=== PATIENT | female | born 1975 | race Caucasian/White ===

== ENCOUNTER → 2016-11-08 | Outpatient (CLI) | payer OTHER ==
--- NOTE | 2016-11-08 15:05 | XR ---
EXAMINATION TYPE: XR knee complete LT, XR tibia fibula LT DATE OF EXAM: 11/08/2016 2:42 PM CLINICAL HISTORY: pain TECHNIQUE: Three views of the left knee are obtained. AP and lateral views of the left tibia and fib asim are also obtained. COMPARISON: None. FINDINGS: There is sclerosis noted involving the medial tibial plateau which could reflect growth rcok te residual although impacted fracture is difficult to exclude. Correlate clinically and if felt brad cated consider CT correlation. The remainder of the left tibia and fibula are grossly unremarkable. T he tri-compartment joint spaces appear mildly narrowed. The overlying soft tissue appears unremarkabl e. IMPRESSION: There is sclerosis noted involving the medial tibial plateau which could reflect growth plate residu al although impacted fracture is difficult to exclude. Correlate clinically and if felt indicated con senior support engineer CT correlation.
== END | disposition home or self-care (01) ==
LOC: RADXRMAIN 14:10
PROVIDERS: ATTEND Emergency Medicine
DX: S80.02XS Contusion of left knee, sequela (principal); S80.12XS Contusion of left lower leg, sequela

== ENCOUNTER → 2016-11-09 | Outpatient (CLI) | payer OTHER ==
--- NOTE | 2016-11-09 12:11 | CT ---
EXAMINATION TYPE: CT knee LT wo con DATE OF EXAM: 11/09/2016 12:03 PM COMPARISON: Radiographs 11/08/2016 HISTORY: 41-year-old female complains of continued left knee pain after trip and fall onto the left k nee. TECHNIQUE: Contiguous axial scanning of the left knee without IV contrast. Coronal and sagittal recon structions performed. CT DLP: 394.6 mGycm Automated exposure control for dose reduction was used. FINDINGS: There is tricompartmental degenerative change with marginal spurring. There is mild to moderate narro wing of medial compartment articular cartilage and joint space with some subchondral bony irregularit y and cystic change. A torn and extruded medial meniscus is difficult to exclude. There is mild to moderate knee joint effusion without Crawford's cyst. No acute fracture or dislocation seen. Extensor mechanism is intact. Mild anterior soft tissue swelling at the knee. IMPRESSION: 1. TRICOMPARTMENTAL OSTEOARTHROSIS, MODERATE WITHIN THE MEDIAL COMPARTMENT. 2. DIFFICULT TO EXCLUDE A TORN AND EXTRUDED MEDIAL MENISCUS. 3. MILD TO MODERATE KNEE JOINT EFFUSION. 4. NO ACUTE OSSEOUS ABNORMALITY SEEN.
== END | disposition home or self-care (01) ==
LOC: RADCTMAIN 11:33
PROVIDERS: ATTEND Emergency Medicine
DX: S80.02XD Contusion of left knee, subsequent encounter (principal); M17.12 Unilateral primary osteoarthritis, left knee; M25.462 Effusion, left knee

== ENCOUNTER 2017-11-06 16:38 | Emergency (ER) | payer BC, OTHER ==
[2017-11-06 17:07] VITALS: BP 116/62; PULSE 66; RESP 18; TEMP 98.4
--- NOTE | 2017-11-06 17:34 | ED ---
General Adult HPI - General Chief complaint: Needlestick/Exposure Stated complaint: [facility]-Needlestick Time Seen by Provider: 11/06/17 17:08 Source: patient, RN notes reviewed Mode of arrival: ambulatory Limitations: no limitations - History of Present Illness Initial comments: 42-year-old female presents to the emergency department with a chief complaint of right ring finger needlestick. Happened during a procedure today. She denies any pain. She's up-to-date immunizations. She is just here per protocol. No other complaints.Patient denies any recent fever, chills, shortness of breath, chest pain, back pain, abdominal pain, nausea vomiting, numbness or tingling, dysuria or hematuria, constipation or diarrhea, headaches or visual changes, or any other current symptoms. - Related Data Home Medications Medication Instructions Recorded Confirmed Meloxicam [Mobic] 15 mg PO DAILY 12/09/14 12/09/14 Ranitidine HCl [Zantac] 150 mg PO BID 12/09/14 12/09/14 Allergies Allergy/AdvReac Type Severity Reaction Status Date / Time Penicillins Allergy Rash/Hives Verified 11/06/17 17:07 Review of Systems ROS Statement: Those systems with pertinent positive or pertinent negative responses have been documented in the HPI. ROS Other: All systems not noted in ROS Statement are negative. Past Medical History Past Medical History: Asthma, Thyroid Disorder History of Any Multi-Drug Resistant Organisms: None Reported Past Surgical History: Section, Hysterectomy Past Psychological History: No Psychological Hx Reported Smoking Status: Never smoker Past Alcohol Use History: None Reported Past Drug Use History: None Reported General Exam - General Exam Comments Initial Comments: General: The patient is awake and alert, in no distress, and does not appear acutely ill. Cardiovascular: There is a regular rate and rhythm. No murmur, rub or gallop is appreciated. Respiratory: Lungs are clear to auscultation, respirations are non-labored, breath sounds are equal. No wheezes, stridor, rales, or rhonchi. Musculoskeletal: Sensation intact. 2+ pulses throughout right upper extremity. Fund motion of right hand. She has a small abrasion to the right proximal aspect of the middle finger. Neurological: CN II-XII intact, There are no obvious motor or sensory deficits. Coordination appears grossly intact. Speech is normal. Skin: Skin is warm and dry and no rashes or lesions are noted. Psychiatric: Normal mood and affect. Limitations: no limitations Course Vital Signs 11/06/17 17:03 Temperature 98.4 F Pulse Rate 66 Respiratory 18 Rate Blood Pressure 116/62 O2 Sat by Pulse 100 Oximetry Medical Decision Making - Medical Decision Making 42-year-old female presents emergency department with chief complaint of right hand needle stick injury. At this time we did do the appropriate laboratory. This time we did discuss follow-up return parameters questions. Patient stated that she understood and she is given plan. She will be discharged. Disposition Clinical Impression: Needle stick injury of finger of right hand Disposition: HOME SELF-CARE Condition: Stable Instructions: Needle Stick Injuries (ED) Additional Instructions: Please use medication as discussed. Please follow up with family doctor if symptoms have not improved over the next two days. Please return to the emergency room if your symptoms increase or worsen or for any other concerns. Referrals: Peyton Stearns MD [Primary Care Provider] - 1-2 days Time of Disposition: 17:34
== END 2017-11-06 17:43 | disposition home or self-care (01) ==
LOC: EC 16:38
DX: S60.412A Abrasion of right middle finger, initial encounter (principal); Z79.1 Long term (current) use of non-steroidal anti-inflammatories (NSAID); Z79.899 Other long term (current) drug therapy; Z88.0 Allergy status to penicillin; W46.0XXA Contact with hypodermic needle, initial encounter; Y92.69 Other specified industrial and construction area as the place of occurrence of the external cause; Y99.0 Civilian activity done for income or pay
CPT/HCPCS: 99282

== ENCOUNTER → 2018-03-14 | Outpatient (CLI) | payer BC ==
[2018-03-14 15:13] LABS: ALT 27 U/L (9-52); AST 19 U/L (14-36); Albumin 4.5 g/dL (3.5-5.0); Alkaline Phosphatase 99 U/L (38-126); Anion Gap 16 mmol/L; Blood Urea Nitrogen 33 mg/dL (7-17); Calcium 9.5 mg/dL (8.4-10.2); Carbon Dioxide 25 mmol/L (22-30); Chloride 104 mmol/L (98-107); Glucose 107 mg/dL (74-99); Potassium 3.7 mmol/L (3.5-5.1); Sodium 145 mmol/L (137-145); Total Bilirubin 0.2 mg/dL (0.2-1.3); Total Protein 7.5 g/dL (6.3-8.2)
--- NOTE | 2018-03-14 15:13 | XR ---
EXAMINATION TYPE: XR chest 2V DATE OF EXAM: 03/14/2018 COMPARISON: NONE HISTORY: Chest pain TECHNIQUE: Single frontal view of the chest is obtained. FINDINGS: There is no focal air space opacity, pleural effusion, or pneumothorax seen. The cardiac silhouette size is within normal limits. The osseous structures are intact. IMPRESSION: 1. No acute process.
[2018-03-14 15:14] LABS: Basophils # (A) 0.1 k/uL (0-0.2); Basophils % (A) 1 %; Eosinophils # (A) 0.2 k/uL (0-0.7); Eosinophils % (A) 2 %; HCT 42.6 % (34.0-46.0); HGB 14.1 gm/dL (11.4-16.0); Lymphocytes # (A) 2.8 k/uL (1.0-4.8); Lymphocytes % (A) 33 %; MCH 28.7 pg (25.0-35.0); MCHC 33.2 g/dL (31.0-37.0); MCV 86.5 fL (80.0-100.0); Mean Platelet Volume 6.6; Monocytes # (A) 0.4 k/uL (0-1.0); Monocytes % (A) 4 %; Neutrophils # (A) 5.1 k/uL (1.3-7.7); Neutrophils % (A) 59 %; Platelet Count 325 k/uL (150-450); RBC 4.93 m/uL (3.80-5.40); RDW 13.3 % (11.5-15.5); WBC 8.6 k/uL (3.8-10.6)
== END | disposition home or self-care (01) ==
LOC: LABWHC1 14:35
PROVIDERS: ATTEND Family Medicine
DX: R06.09 Other forms of dyspnea (principal)
CPT/HCPCS: 36415; 71046; 80053; 84443; 85025

== ENCOUNTER 2018-09-14 10:42 | Emergency (ER) | payer BC, OTHER ==
[2018-09-14 10:52] VITALS: BP 144/96; PULSE 77; RESP 18; TEMP 98.2
--- NOTE | 2018-09-14 11:09 | ED ---
Wound/Laceration HPI - General Chief Complaint: Wound/Laceration Stated Complaint: [facility] - rt thumb lac Time Seen by Provider: 09/14/18 10:54 Source: patient, RN notes reviewed Mode of arrival: ambulatory Limitations: no limitations - History of Present Illness Initial Comments: 43-year-old female presents emergency Department chief complaint of right thumb injury. 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 Patient states that it caused Laceration to the right thumb. She did wash out with Betadine and hydroperoxide. Patient's full range of motion of her right thumb she is right-hand dominant - Related Data Home Medications Medication Instructions Recorded Confirmed Ranitidine HCl [Zantac] 150 mg PO BID 12/09/14 12/09/14 Albuterol Inhaler [Ventolin Hfa 1 - 2 puff INHALATION RT-Q6H PRN 09/14/18 Inhaler] Bovine Thyroid Support 2 cap PO DAILY 09/14/18 09/14/18 Celecoxib [CeleBREX] 200 mg PO DAILY 09/14/18 09/14/18 Allergies Allergy/AdvReac Type Severity Reaction Status Date / Time Penicillins Allergy Rash/Hives Verified 09/14/18 11:11 Review of Systems ROS Statement: Those systems with pertinent positive or pertinent negative responses have been documented in the HPI. ROS Other: All systems not noted in ROS Statement are negative. Past Medical History Past Medical History: Asthma, Thyroid Disorder Additional Past Medical History / Comment(s): Arthitis History of Any Multi-Drug Resistant Organisms: None Reported Past Surgical History: Section, Hysterectomy Past Psychological History: No Psychological Hx Reported Smoking Status: Never smoker Past Alcohol Use History: None Reported Past Drug Use History: None Reported General Exam Limitations: no limitations General appearance: alert, in no apparent distress Head exam: Present: atraumatic, normocephalic, normal inspection Neck exam: Present: normal inspection. Absent: tenderness, meningismus, lymphadenopathy Respiratory exam: Present: normal lung sounds bilaterally. Absent: respiratory distress, wheezes, rales, rhonchi, stridor Cardiovascular Exam: Present: regular rate, normal rhythm, normal heart sounds. Absent: systolic murmur, diastolic murmur, rubs, gallop, clicks Extremities exam: Present: other (Right thumb full range of motion C shape laceration approximately 1 cm over the joint neurovascular intact) Course Vital Signs 09/14/18 10:49 Temperature 98.2 F Pulse Rate 77 Respiratory 18 Rate Blood Pressure 144/96 O2 Sat by Pulse 98 Oximetry Procedures - Laceration Laceration #1 Consent Obtained: verbal consent Indication: laceration Site: hand (Right hand first digit) Size (cm): 1 Description: flap, irregular Depth: simple, single layer Anesthetic Used: lidocaine 1%, without epi Anesthesia Technique: local infiltration Amount (mls): 2 Pre-repair: wound explored, irrigated extensively, deep structures intact Type of Sutures: nylon Size of Sutures: 4-0 Number of Sutures: 3 Technique: simple, interrupted Patient Tolerated Procedure: well, no complications Medical Decision Making - Medical Decision Making 43-year-old female presented for finger laceration. Patient laceration was closed using sutures patient tolerated well there is no tendon injury. Patient' s tetanus is up-to-date return parameters and and wound care were discussed Disposition Clinical Impression: Laceration of right thumb Disposition: HOME SELF-CARE Condition: Stable Instructions: Care For Your Stitches (ED), Finger Laceration (ED) Additional Instructions: Have sutures removed in 10 days. Please return to the Emergency Department if symptoms worsen or any other concerns. Is patient prescribed a controlled substance at d/c from ED?: No Referrals: Peyton Stearns MD [Primary Care Provider] - 1-2 days Time of Disposition: 11:09
== END 2018-09-14 11:53 | disposition home or self-care (01) ==
LOC: EC 10:42
DX: S61.011A Laceration without foreign body of right thumb without damage to nail, initial encounter (principal); J45.909 Unspecified asthma, uncomplicated; E07.9 Disorder of thyroid, unspecified; Z79.899 Other long term (current) drug therapy; Z88.0 Allergy status to penicillin; W26.8XXA Contact with other sharp object(s), not elsewhere classified, initial encounter; Y92.234 Operating room of hospital as the place of occurrence of the external cause; Y99.0 Civilian activity done for income or pay
CPT/HCPCS: 12001; 99282

== ENCOUNTER 2018-10-24 18:40 | Emergency (ER) | payer BC ==
[2018-10-24] MEDS ORDERED: methylPREDNISolone SOD SUCCI 125 MG/2 ML VIAL IV STA (18:55)
[2018-10-24] MEDS ORDERED: IPRATROPIUM-ALBUTEROL 3 ML NEB INHALATION STA (18:55)
--- NOTE | 2018-10-24 19:02 | ED ---
SOB HPI - General Chief Complaint: Shortness of Breath Stated Complaint: ASTHMA ATTACK Time Seen by Provider: 10/24/18 18:48 Source: patient, RN notes reviewed Mode of arrival: ambulatory Limitations: no limitations - History of Present Illness Initial Comments: This is a 43-year-old female with a history of asthma states she had the onset 4 days ago of cold symptoms which included a cough some wheezing and rhinorrhea she also states she had a fever for 2 days prior to this morning. The cough is minimally productive rhinorrhea is clear. She has some body aches earlier in the current process. Today she states she was at work and she had very dyspneic and it did not resolve with her inhaler. She denies any overt chest pain dizziness blurry vision she states her heart rate is rapid she believes is secondary to her inhaler. MD Complaint: shortness of breath - Related Data Home Medications Medication Instructions Recorded Confirmed Ranitidine HCl [Zantac] 150 mg PO BID 12/09/14 10/24/18 Albuterol Inhaler [Ventolin Hfa 1 - 2 puff INHALATION RT-Q6H PRN 09/14/18 Inhaler] Bovine Thyroid Support 2 cap PO DAILY 09/14/18 10/24/18 Celecoxib [CeleBREX] 200 mg PO DAILY 09/14/18 10/24/18 Albuterol Nebulized [Ventolin 2.5 mg INHALATION RT-QID PRN 10/24/18 10/24/18 Nebulized] Previous Rx's Medication Instructions Recorded Albuterol Inhaler [Ventolin Hfa 2 puff INHALATION Q6HR PRN #1 10/24/18 Inhaler] inhaler Azithromycin [Zithromax Tri-Tanner] 500 mg PO DAILY 3 Days #3 tab 10/24/18 predniSONE 20 mg PO BID #10 tab 10/24/18 Allergies Allergy/AdvReac Type Severity Reaction Status Date / Time Penicillins Allergy Rash/Hives Verified 10/24/18 19:58 Review of Systems ROS Statement: Those systems with pertinent positive or pertinent negative responses have been documented in the HPI. ROS Other: All systems not noted in ROS Statement are negative. Past Medical History Past Medical History: Asthma, Thyroid Disorder Additional Past Medical History / Comment(s): Arthitis History of Any Multi-Drug Resistant Organisms: None Reported Past Surgical History: Section, Hysterectomy Past Psychological History: No Psychological Hx Reported Smoking Status: Never smoker Past Alcohol Use History: None Reported Past Drug Use History: None Reported General Exam - General Exam Comments Initial Comments: Is a well-developed well-nourished awake alert oriented 3 female Limitations: no limitations General appearance: alert, anxious, in distress Head exam: Present: atraumatic, normocephalic, normal inspection Eye exam: Present: normal appearance, PERRL, EOMI. Absent: scleral icterus, conjunctival injection, periorbital swelling ENT exam: Present: mucous membranes moist, other (Boggy nasal mucosa) Neck exam: Present: normal inspection. Absent: tenderness, meningismus, lymphadenopathy Respiratory exam: Present: wheezes, decreased breath sounds. Absent: respiratory distress, rales, rhonchi, stridor Cardiovascular Exam: Present: normal rhythm, tachycardia, normal heart sounds. Absent: systolic murmur, diastolic murmur, rubs, gallop, clicks GI/Abdominal exam: Present: soft, normal bowel sounds. Absent: distended, tenderness, guarding, rebound, rigid Extremities exam: Present: normal inspection, full ROM, normal capillary refill. Absent: tenderness, pedal edema, joint swelling, calf tenderness Back exam: Present: normal inspection Neurological exam: Present: alert, oriented X3, CN II-XII intact Psychiatric exam: Present: normal affect, normal mood Skin exam: Present: warm, dry, intact, normal color. Absent: rash Course Vital Signs 10/24/18 10/24/18 10/24/18 18:42 19:15 19:24 Temperature 98.2 F Pulse Rate 152 H 117 H 122 H Respiratory 18 Rate Blood Pressure 166/137 O2 Sat by Pulse 94 L Oximetry - Reevaluation(s) Reevaluation #1: 10/24/18 19:46 Reevaluation patient finds that she is feeling much improved at the initial treatment that was rendered. X-rays pending at this time. Medical Decision Making - Medical Decision Making I did reevaluate patient on 2 occasions she is feeling much improved after discussion she'll be discharged on appropriate medication which includes antibiotic oral steroids and a new inhaler she does have a nebulizer machine at home. - Lab Data Result diagrams: 10/24/18 18:59 10/24/18 18:59 Lab Results 10/24/18 10/24/18 10/24/18 Range/Units 18:59 18:59 18:59 WBC 10.1 (3.8-10.6) k/uL RBC 5.36 (3.80-5.40) m/uL Hgb 15.0 (11.4-16.0) gm/dL Hct 45.0 (34.0-46.0) % MCV 83.9 (80.0-100.0) fL MCH 28.0 (25.0-35.0) pg MCHC 33.4 (31.0-37.0) g/dL RDW 13.0 (11.5-15.5) % Plt Count 308 (150-450) k/uL Neutrophils % 73 % Lymphocytes % 19 % Monocytes % 5 % Eosinophils % 2 % Basophils % 0 % Neutrophils # 7.3 (1.3-7.7) k/uL Lymphocytes # 1.9 (1.0-4.8) k/uL Monocytes # 0.5 (0-1.0) k/uL Eosinophils # 0.2 (0-0.7) k/uL Basophils # 0.0 (0-0.2) k/uL PT (9.0-12.0) sec INR (<1.2) APTT (22.0-30.0) sec Sodium 138 (137-145) mmol/L Potassium 4.1 (3.5-5.1) mmol/L Chloride 103 (98-107) mmol/L Carbon Dioxide 20 L (22-30) mmol/L Anion Gap 15 mmol/L BUN 19 H (7-17) mg/dL Creatinine 0.80 (0.52-1.04) mg/dL Est GFR (CKD-EPI)AfAm >90 (>60 ml/min/1.73 sqM) Est GFR (CKD-EPI)NonAf >90 (>60 ml/min/1.73 sqM) Glucose 128 H (74-99) mg/dL Calcium 10.1 (8.4-10.2) mg/dL Magnesium 1.8 (1.6-2.3) mg/dL Total Bilirubin 0.5 (0.2-1.3) mg/dL AST 23 (14-36) U/L ALT 29 (9-52) U/L Alkaline Phosphatase 129 H (38-126) U/L Total Creatine Kinase 40 (30-135) U/L CK-MB (CK-2) 0.3 (0.0-2.4) ng/mL CK-MB (CK-2) Rel Index 0.8 Troponin I <0.012 (0.000-0.034) ng/mL NT-Pro-B Natriuret Pep pg/mL Total Protein 8.1 (6.3-8.2) g/dL Albumin 4.6 (3.5-5.0) g/dL Influenza Type A RNA (Not Detectd) Influenza Type B (PCR) (Not Detectd) 10/24/18 10/24/18 10/24/18 Range/Units 18:59 18:59 18:59 WBC (3.8-10.6) k/uL RBC (3.80-5.40) m/uL Hgb (11.4-16.0) gm/dL Hct (34.0-46.0) % MCV (80.0-100.0) fL MCH (25.0-35.0) pg MCHC (31.0-37.0) g/dL RDW (11.5-15.5) % Plt Count (150-450) k/uL Neutrophils % % Lymphocytes % % Monocytes % % Eosinophils % % Basophils % % Neutrophils # (1.3-7.7) k/uL Lymphocytes # (1.0-4.8) k/uL Monocytes # (0-1.0) k/uL Eosinophils # (0-0.7) k/uL Basophils # (0-0.2) k/uL PT 10.1 (9.0-12.0) sec INR 0.9 (<1.2) APTT 26.3 (22.0-30.0) sec Sodium (137-145) mmol/L Potassium (3.5-5.1) mmol/L Chloride (98-107) mmol/L Carbon Dioxide (22-30) mmol/L Anion Gap mmol/L BUN (7-17) mg/dL Creatinine (0.52-1.04) mg/dL Est GFR (CKD-EPI)AfAm (>60 ml/min/1.73 sqM) Est GFR (CKD-EPI)NonAf (>60 ml/min/1.73 sqM) Glucose (74-99) mg/dL Calcium (8.4-10.2) mg/dL Magnesium (1.6-2.3) mg/dL Total Bilirubin (0.2-1.3) mg/dL AST (14-36) U/L ALT (9-52) U/L Alkaline Phosphatase (38-126) U/L Total Creatine Kinase (30-135) U/L CK-MB (CK-2) (0.0-2.4) ng/mL CK-MB (CK-2) Rel Index Troponin I (0.000-0.034) ng/mL NT-Pro-B Natriuret Pep 49 pg/mL Total Protein (6.3-8.2) g/dL Albumin (3.5-5.0) g/dL Influenza Type A RNA Not Detected (Not Detectd) Influenza Type B (PCR) Not Detected (Not Detectd) - EKG Data -: EKG Interpreted by Me EKG shows normal: sinus rhythm, axis, intervals, QRS complexes, ST-T waves ( Sinus tachycardia 121 AZ interval 132 QRS duration 82 QT since QTC 32/[address]-T wave changes) Rate: tachycardia - Radiology Data Radiology results: report reviewed (I did review the imaging and report is evidence of minimal linear infiltrate or atelectasis a right middle lobe.), image reviewed Disposition Clinical Impression: Acute asthma exacerbation, Pneumonitis, Bronchospasm Disposition: HOME SELF-CARE Condition: Good Instructions: Bronchospasm (ED), Asthma (ED), Pneumonitis (ED) Prescriptions: Albuterol Inhaler [Ventolin Hfa Inhaler] 2 puff INHALATION Q6HR PRN #1 inhaler PRN Reason: Dyspnea Azithromycin [Zithromax Tri-Tanner] 500 mg PO DAILY 3 Days #3 tab predniSONE 20 mg PO BID #10 tab Is patient prescribed a controlled substance at d/c from ED?: No Referrals: Peyton Stearns MD [Primary Care Provider] - 1-2 days
[2018-10-24 19:18] LABS: Basophils % (A) 0 %; Eosinophils # (A) 0.2 k/uL (0-0.7); Eosinophils % (A) 2 %; Lymphocytes # (A) 1.9 k/uL (1.0-4.8); Lymphocytes % (A) 19 %; MCHC 33.4 g/dL (31.0-37.0); MCV 83.9 fL (80.0-100.0); Mean Platelet Volume 6.7; Monocytes # (A) 0.5 k/uL (0-1.0); Monocytes % (A) 5 %; Neutrophils # (A) 7.3 k/uL (1.3-7.7); Neutrophils % (A) 73 %; Platelet Count 308 k/uL (150-450); RBC 5.36 m/uL (3.80-5.40); WBC 10.1 k/uL (3.8-10.6)
[2018-10-24 19:28] LABS: ALT 29 U/L (9-52); AST 23 U/L (14-36); Albumin 4.6 g/dL (3.5-5.0); Alkaline Phosphatase 129 U/L (38-126); Anion Gap 15 mmol/L; Blood Urea Nitrogen 19 mg/dL (7-17); Calcium 10.1 mg/dL (8.4-10.2); Carbon Dioxide 20 mmol/L (22-30); Chloride 103 mmol/L (98-107); Glucose 128 mg/dL (74-99); Magnesium 1.8 mg/dL (1.6-2.3); Potassium 4.1 mmol/L (3.5-5.1); Sodium 138 mmol/L (137-145); Total Bilirubin 0.5 mg/dL (0.2-1.3); Total Protein 8.1 g/dL (6.3-8.2)
[2018-10-24 19:32] LABS: Creatine Kinase 40 U/L (30-135); INR 0.9 (<1.2); Partial Thromboplastin Time 26.3 sec (22.0-30.0); Prothrombin Time 10.1 sec (9.0-12.0)
[2018-10-24 19:45] LABS: Creatine Kinase MB 0.3 ng/mL (0.0-2.4); Troponin I <0.012 ng/mL (0.000-0.034)
--- NOTE | 2018-10-24 20:20 | XR ---
EXAMINATION TYPE: XR chest 2V DATE OF EXAM: 10/24/2018 COMPARISON: NONE HISTORY: Short of breath TECHNIQUE: Frontal and lateral views of the chest are obtained. FINDINGS: Heart and mediastinum are normal. There is some linear density in the right middle lobe ad jacent to the major fissure. The other lung maxwell are clear. There is no pleural effusion. Bony thor ax is intact. IMPRESSION: Minimal linear infiltrate or atelectasis in the right middle lobe.
[2018-10-24 20:45] VITALS: BP 116/87; PULSE 107; RESP 16; TEMP 98.6
== END 2018-10-24 20:42 | disposition home or self-care (01) ==
LOC: EC 18:40
DX: J45.901 Unspecified asthma with (acute) exacerbation (principal); J18.9 Pneumonia, unspecified organism; M19.90 Unspecified osteoarthritis, unspecified site; E07.9 Disorder of thyroid, unspecified; Z79.1 Long term (current) use of non-steroidal anti-inflammatories (NSAID); Z79.899 Other long term (current) drug therapy; Z88.0 Allergy status to penicillin
CPT/HCPCS: 36415; 94640; 93005; 83880; 80053; 82550; 82553; 83735; 84484; 85025; 85610; 85730; 87040; 87502; 71046; 99285; 96374; J2930

== ENCOUNTER 2019-05-10 22:10 | Inpatient (IN) | payer BC ==
[2019-05-10] MEDS ORDERED: methylPREDNISolone SOD SUCCI 125 MG/2 ML VIAL IV STA (22:34)
[2019-05-10] MEDS ORDERED: MAGNESIUM SULFATE-D5W PMX 1 GM in DEXTROSE/WATER 1 100ML.BAG IVPB STA (22:34)
[2019-05-10] MEDS ORDERED: IPRATROPIUM-ALBUTEROL 3 ML NEB INHALATION STA (22:34)
[2019-05-10 22:56] LABS: Basophils # (A) 0.1 k/uL (0-0.2); Basophils % (A) 1 %; Eosinophils # (A) 0.2 k/uL (0-0.7); Eosinophils % (A) 1 %; HCT 38.5 % (34.0-46.0); HGB 12.8 gm/dL (11.4-16.0); Lymphocytes # (A) 2.6 k/uL (1.0-4.8); Lymphocytes % (A) 18 %; MCH 26.4 pg (25.0-35.0); MCHC 33.4 g/dL (31.0-37.0); MCV 79.2 fL (80.0-100.0); Mean Platelet Volume 7.2; Monocytes # (A) 0.8 k/uL (0-1.0); Monocytes % (A) 5 %; Neutrophils # (A) 10.7 k/uL (1.3-7.7); Neutrophils % (A) 74 %; Platelet Count 442 k/uL (150-450); RBC 4.86 m/uL (3.80-5.40); RDW 12.9 % (11.5-15.5); WBC 14.6 k/uL (3.8-10.6)
[2019-05-10 23:10] LABS: African American GFR (CKD) >90 (>60 ml/min/1.73 sqM); Anion Gap 13 mmol/L; Blood Urea Nitrogen 19 mg/dL (7-17); Calcium 9.2 mg/dL (8.4-10.2); Carbon Dioxide 24 mmol/L (22-30); Chloride 101 mmol/L (98-107); Glucose 126 mg/dL (74-99); Potassium 3.1 mmol/L (3.5-5.1); Sodium 138 mmol/L (137-145)
--- NOTE | 2019-05-10 23:14 | XR ---
EXAM: XR Chest, 2 Views CLINICAL HISTORY: ITS.REASON XR Reason: difficulty breathing TECHNIQUE: Frontal and lateral views of the chest. COMPARISON: 10/24/18. FINDINGS: Lungs: Mild lower lung opacities, possible atelectasis or developing infiltrate. Mild peribronchial thickening. Pleural space: No significant pleural effusion or pneumothorax. Heart: Stable cardiomediastinal silhouette. Mediastinum: See above. Bones/joints: Stable sclerotic focus in the proximal left humerus. IMPRESSION: Mild peribronchial thickening and lower lung opacities, possible atelectasis or developing infiltrate.
[2019-05-11] MEDS ORDERED: AZITHROMYCIN 500 MG in SODIUM CHLORIDE 0.9% 250 ML IVPB STA (00:31)
[2019-05-11] MEDS ORDERED: NALOXONE 0.4 MG/ML 1 ML VIAL IV PRN (00:45)
[2019-05-11] MEDS ORDERED: IPRATROPIUM-ALBUTEROL 3 ML NEB INHALATION SCH (00:45)
--- NOTE | 2019-05-11 00:45 | ED ---
SOB HPI - General Chief Complaint: Shortness of Breath Stated Complaint: Asthma Time Seen by Provider: 05/10/19 22:22 Source: patient Mode of arrival: ambulatory Limitations: no limitations - History of Present Illness Initial Comments: She is a 44-year-old female with past history of asthma who presents to the emergency room with worsening shortness of breath and she states that over the past week she's had progressive shortness of breath and wheezing. She did call her primary care physician who called her and a Medrol Dosepak. She has been using her rescue inhaler at home without improvement in her symptoms. She has also been using her mother's DuoNeb breathing treatment and states that these have not been helping. She reports palpitations. She is also had a dry cough. No reported fevers or chills. She reports that she will frequent hospital 1-2 times per year for worsening shortness of breath. She denies ever being on the ventilator due to her asthma. She denies any nausea, vomiting or diaphoresis. No chest pain. Denies any abdominal pain. History of DVTs or PEs. No family history of blood clotting disorders. No recent surgeries or travel. Denies exogenous hormone use. Her no other alleviating, precipitating or modifying factors - Related Data Home Medications Medication Instructions Recorded Confirmed Ranitidine HCl [Zantac] 150 mg PO BID 12/09/14 05/10/19 Bovine Thyroid Support 2 cap PO DAILY 09/14/18 05/10/19 Celecoxib [CeleBREX] 200 mg PO DAILY 09/14/18 05/10/19 Albuterol Nebulized [Ventolin 2.5 mg INHALATION RT-QID PRN 10/24/18 05/10/19 Nebulized] methylPREDNISolone Dose Pack See Taper PO DAILY 05/10/19 05/10/19 [Medrol Dose Pack] Previous Rx's Medication Instructions Recorded Albuterol Inhaler [Ventolin Hfa 2 puff INHALATION Q6HR PRN #1 10/24/18 Inhaler] inhaler Allergies Allergy/AdvReac Type Severity Reaction Status Date / Time Penicillins Allergy Rash/Hives Verified 10/24/18 19:58 Review of Systems ROS Statement: Those systems with pertinent positive or pertinent negative responses have been documented in the HPI. ROS Other: All systems not noted in ROS Statement are negative. Past Medical History Past Medical History: Asthma, GERD/Reflux, Thyroid Disorder Additional Past Medical History / Comment(s): Arthitis History of Any Multi-Drug Resistant Organisms: None Reported Past Surgical History: Section, Hysterectomy Past Psychological History: No Psychological Hx Reported Smoking Status: Never smoker Past Alcohol Use History: None Reported Past Drug Use History: None Reported General Exam Limitations: no limitations Course Vital Signs 05/10/19 05/10/19 05/10/19 22:12 23:03 23:10 Temperature 98.3 F Pulse Rate 114 H 112 H 98 Respiratory 23 18 Rate Blood Pressure 140/79 133/83 O2 Sat by Pulse 97 95 Oximetry 05/10/19 05/11/19 05/11/19 23:11 00:20 01:00 Temperature Pulse Rate 109 H 105 H 93 Respiratory 26 H 20 Rate Blood Pressure 133/83 116/70 O2 Sat by Pulse 90 L 93 L Oximetry 05/11/19 02:32 Temperature Pulse Rate Respiratory 18 Rate Blood Pressure O2 Sat by Pulse Oximetry Medical Decision Making - Medical Decision Making Vital the patient is placed into room 6. She is hooked up to continuous pulse ox and cardiac monitoring. A 12-lead EKG is performed which demonstrates sinus tachycardia. We did obtain IV access. The patient was given 125 mg of Solu- Medrol, 1 g of magnesium and a DuoNeb breathing treatment. Also provided the patient with Tessalon Perles and codeine cough syrup. I conducted laboratory studies and a chest x-ray was performed. Upon return results I did discuss with the patient. They are reading possible atelectasis versus infiltrate on the patient's chest x-ray. Because of her elevated white count of 14.6 I did recommend coverage with antibiotics. The white count may be attributed to patient's recent steroid use however we'll continue to place the patient on azithromycin. The patient was reevaluated and continues to remain tachycardic at 110 resting comfortably in bed. This patient is failing outpatient treatment I did recommend admission to hospital for which the patient did agree. She was admitted to Dr. Carrasco. I will provide the patient with steroids every 8 hours. She also received DuoNeb breathing treatments. I did replace the patient's potassium. She was given a 500 mL fluid bolus as well as 100 mL per hour for her lactic acidosis. The patient was reevaluated and showed no signs of respiratory distress. She is in transported to the floor in stable condition - Lab Data Result diagrams: 05/10/19 22:49 05/10/19 22:49 Lab Results 05/10/19 05/10/19 05/10/19 Range/Units 22:49 22:49 22:49 WBC 14.6 H (3.8-10.6) k/uL RBC 4.86 (3.80-5.40) m/uL Hgb 12.8 (11.4-16.0) gm/dL Hct 38.5 (34.0-46.0) % MCV 79.2 L (80.0-100.0) fL MCH 26.4 (25.0-35.0) pg MCHC 33.4 (31.0-37.0) g/dL RDW 12.9 (11.5-15.5) % Plt Count 442 (150-450) k/uL Neutrophils % 74 % Lymphocytes % 18 % Monocytes % 5 % Eosinophils % 1 % Basophils % 1 % Neutrophils # 10.7 H (1.3-7.7) k/uL Lymphocytes # 2.6 (1.0-4.8) k/uL Monocytes # 0.8 (0-1.0) k/uL Eosinophils # 0.2 (0-0.7) k/uL Basophils # 0.1 (0-0.2) k/uL D-Dimer 0.48 (<0.60) mg/L FEU Sodium 138 (137-145) mmol/L Potassium 3.1 L (3.5-5.1) mmol/L Chloride 101 (98-107) mmol/L Carbon Dioxide 24 (22-30) mmol/L Anion Gap 13 mmol/L BUN 19 H (7-17) mg/dL Creatinine 0.57 (0.52-1.04) mg/dL Est GFR (CKD-EPI)AfAm >90 (>60 ml/min/1.73 sqM) Est GFR (CKD-EPI)NonAf >90 (>60 ml/min/1.73 sqM) Glucose 126 H (74-99) mg/dL Plasma Lactic Acid Luke (0.7-2.0) mmol/L Calcium 9.2 (8.4-10.2) mg/dL 05/10/19 Range/Units 22:49 WBC (3.8-10.6) k/uL RBC (3.80-5.40) m/uL Hgb (11.4-16.0) gm/dL Hct (34.0-46.0) % MCV (80.0-100.0) fL MCH (25.0-35.0) pg MCHC (31.0-37.0) g/dL RDW (11.5-15.5) % Plt Count (150-450) k/uL Neutrophils % % Lymphocytes % % Monocytes % % Eosinophils % % Basophils % % Neutrophils # (1.3-7.7) k/uL Lymphocytes # (1.0-4.8) k/uL Monocytes # (0-1.0) k/uL Eosinophils # (0-0.7) k/uL Basophils # (0-0.2) k/uL D-Dimer (<0.60) mg/L FEU Sodium (137-145) mmol/L Potassium (3.5-5.1) mmol/L Chloride (98-107) mmol/L Carbon Dioxide (22-30) mmol/L Anion Gap mmol/L BUN (7-17) mg/dL Creatinine (0.52-1.04) mg/dL Est GFR (CKD-EPI)AfAm (>60 ml/min/1.73 sqM) Est GFR (CKD-EPI)NonAf (>60 ml/min/1.73 sqM) Glucose (74-99) mg/dL Plasma Lactic Acid Luke 2.2 H* (0.7-2.0) mmol/L Calcium (8.4-10.2) mg/dL - EKG Data EKG Comments: EKG demonstrates a sinus tachycardia with a ventricular rate of 103. FL interval 134. QRS 84. QTC 448. There are no acute ST segment elevations or depressions concerning for ischemic changes. Disposition Clinical Impression: Asthma exacerbation, Bronchospasm, Leukocytosis, Failure of outpatient tr eatment, Tachycardia Disposition: ADMITTED IP TO THIS HOSP Condition: Stable Is patient prescribed a controlled substance at d/c from ED?: No Decision to Admit Reason: Admit from EC Decision Date: 05/11/19 Decision Time: 00:44
[2019-05-11] MEDS ORDERED: ALBUTEROL NEBULIZED 2.5 MG/3 ML INHALATION PRN (00:47)
[2019-05-11] MEDS ORDERED: POTASSIUM CHLORIDE ER 20 MEQ TAB.ER PO STA (00:48)
[2019-05-11] MEDS: BENZONATATE 100 MG CAP PO SCH ×4 (00:49→22:12)
[2019-05-11] MEDS ORDERED: SODIUM CHLORIDE 0.9% 1,000 ML IV ONE (01:05)
[2019-05-11] MEDS: SODIUM CHLORIDE 0.9% 1,000 ML IV SCH ×3 (02:35→20:02)
[2019-05-11 06:03] VITALS: BMI 42.0
[2019-05-11 07:13] LABS: Glucose,Whole Blood 185 mg/dL (75-99)
[2019-05-11] MEDS: IPRATROPIUM-ALBUTEROL 3 ML NEB INHALATION PRN ×4 (08:16→20:07)
[2019-05-11] MEDS ORDERED: [UNRECOGNIZED DRUG - OTHER] PO SCH (09:00)
[2019-05-11] MEDS: methylPREDNISolone SOD SUCCI 40 MG/ML 1 ML VIAL IV SCH ×3 (10:28→23:39)
[2019-05-11] MEDS: MELOXICAM 7.5 MG TAB PO SCH (10:28)
[2019-05-11] MEDS: FAMOTIDINE 20 MG TAB PO SCH ×2 (10:28→20:03)
[2019-05-11 11:01] LABS: Glucose,Whole Blood 162 mg/dL (75-99)
--- NOTE | 2019-05-11 16:04 | P.HPIM ---
History of Present Illness H&P Date: 05/11/19 Chief Complaint: Shortness of breath Ms. Perez is a 44-year-old female with a past medical history of asthma, GERD, thyroid disorder coming into the hospital with a chief complaint of cough along with mild difficulty in breathing. Patient states that she has history of ast hma and is only taking rescue inhaler at home. For the past 1 week she has increased wheezing and difficulty in breathing so she called her primary care physician who put her on Medrol Dosepak. In spite of being on it patient continued to have cough and difficulty in breathing. The cough is mostly dry in nature nonproductive. She denies having any fevers chills or rigors. Patient denies having any chest pain, palpitations, orthopnea or PND. No sick contacts. No abdominal pain nausea vomiting or diarrhea. No history of recent travel. No history of blood clots in the family, no history of DVT and PE. In the emergency department patient received breathing treatments, started on Solu-Medrol and azithromycin. She had chest x-ray done that was negative for any acute cardiopulmonary process. Review of Systems REVIEW OF SYSTEMS: PSYCH: no Anxiety or depression NEURO:No c/o weakness of the extremties, No facial droop, No speech abnormalities. VASCULAR: Peripheral nervous system within the normal limits no edema HEMATOLOGIC: No history of easy bleeding and bruising . No recent infections . RESPIRATORY: As per HPI IMMUNE: No infections INTEGUMENT: no rashes OPHTHALMOLOGIC: No blurry vision and no eye discharge : No dysuria or hematuria AUTOCAD: No bleeding PV CARDIAC: No chest pain , shortness of breath , paroxysmal nocturnal dyspnea MUSCULOSKELETAL : No Aches or pains in the joints or muscles. GI: No abdominal pain, Nausea or vomiting. No constipation or diarrhea. Past Medical History Past Medical History: Asthma, GERD/Reflux, Thyroid Disorder Additional Past Medical History / Comment(s): Arthitis History of Any Multi-Drug Resistant Organisms: None Reported Past Surgical History: Section, Hysterectomy Past Psychological History: No Psychological Hx Reported Smoking Status: Never smoker Past Alcohol Use History: None Reported Past Drug Use History: None Reported - Past Family History Son(s) Family Medical History: No Reported History Medications and Allergies Home Medications Medication Instructions Recorded Confirmed Type Ranitidine HCl [Zantac] 150 mg PO BID 12/09/14 05/10/19 History Bovine Thyroid Support 2 cap PO DAILY 09/14/18 05/10/19 History Celecoxib [CeleBREX] 200 mg PO DAILY 09/14/18 05/10/19 History Albuterol Inhaler [Ventolin Hfa 2 puff INHALATION Q6HR PRN #1 10/24/18 05/10/19 Rx Inhaler] inhaler Albuterol Nebulized [Ventolin 2.5 mg INHALATION RT-QID PRN 10/24/18 05/10/19 History Nebulized] methylPREDNISolone Dose Pack See Taper PO DAILY 05/10/19 05/10/19 History [Medrol Dose Pack] Allergies Allergy/AdvReac Type Severity Reaction Status Date / Time Penicillins Allergy Rash/Hives Verified 10/24/18 19:58 Physical Exam Vitals: Vital Signs Temp Pulse Pulse Resp BP BP Pulse Ox 05/11/19 12:02 96 05/11/19 11:49 94 05/11/19 11:05 97.8 F 78 16 110/60 95 05/11/19 08:25 92 05/11/19 08:16 92 05/11/19 05:18 98.3 F 89 20 124/76 96 05/11/19 03:12 97.9 F 91 16 139/86 96 05/11/19 02:32 18 05/11/19 01:00 93 20 116/70 93 L 05/11/19 00:20 105 H 26 H 133/83 90 L 05/10/19 23:11 109 H 05/10/19 23:10 98 18 133/83 95 05/10/19 23:03 112 H 05/10/19 22:12 98.3 F 114 H 23 140/79 97 Intake and Output 05/11/19 05/11/19 05/11/19 06:59 14:59 22:59 Intake Total 590 Balance 590 Intake: Oral 590 Other: Voiding Method Toilet # Voids 1 3 GEN. APPEARANCE: alert, in no apparent distress HEAD EXAM: atraumatic, normocephalic, normal inspectiont RESPIRATORY EXAM: Patient has dry cough. normal lung sounds bilaterally. No wheezes or crackles. CARDIOVASCULAR EXAM: S1-S2 heard. Not sure sounds. GI/ABDOMINAL EXAM: soft, normal bowel sounds. Absent: distended, tenderness, guarding, rebound, rigid EXTREMITIES EXAM: No lower extremity edema NEUROLOGICAL EXAM: alert, oriented X3, no focal neurological deficits PSYCHIATRIC EXAM: normal affect, normal mood SKIN EXAM: warm, dry, intact, normal color. Absent: rash Results CBC & Chem 7: 05/10/19 22:49 05/10/19 22:49 Labs: Abnormal Lab Results - Last 24 Hours (Table) 05/10/19 05/10/19 05/10/19 Range/Units 22:49 22:49 22:49 WBC 14.6 H (3.8-10.6) k/uL MCV 79.2 L (80.0-100.0) fL Neutrophils # 10.7 H (1.3-7.7) k/uL Potassium 3.1 L (3.5-5.1) mmol/L BUN 19 H (7-17) mg/dL Glucose 126 H (74-99) mg/dL POC Glucose (mg/dL) (75-99) mg/dL Plasma Lactic Acid Luke 2.2 H* (0.7-2.0) mmol/L 05/11/19 05/11/19 Range/Units 07:12 10:59 WBC (3.8-10.6) k/uL MCV (80.0-100.0) fL Neutrophils # (1.3-7.7) k/uL Potassium (3.5-5.1) mmol/L BUN (7-17) mg/dL Glucose (74-99) mg/dL POC Glucose (mg/dL) 185 H 162 H (75-99) mg/dL Plasma Lactic Acid Luke (0.7-2.0) mmol/L Thrombosis Risk Factor Assmnt - Choose All That Apply Any of the Below Risk Factors Present?: Yes Each Factor Represents 1 point: Age 41-60 years, Obesity (BMI >25) Thrombosis Risk Factor Assessment Total Risk Factor Score: 2 Thrombosis Risk Factor Assessment Level: Low Risk Assessment and Plan Assessment: ASSESSMENT Acute asthma exacerbation secondary to tracheobronchitis GERD/reflux disease Thyroid disorder Morbid obesity with a BMI of 42 PLAN: Patient has been started on IV Solu-Medrol, breathing treatments and azithromycin which will be continued. Resume all her home medications which will be continued. Further recommendations to follow depending on the progress of the patient.
[2019-05-11 16:43] LABS: Glucose,Whole Blood 165 mg/dL (75-99)
[2019-05-11] MEDS: ENOXAPARIN 40 MG/0.4 ML SYRINGE SQ SCH (16:49)
[2019-05-11 20:04] LABS: Glucose,Whole Blood 203 mg/dL (75-99)
[2019-05-12 07:08] LABS: Glucose,Whole Blood 149 mg/dL (75-99)
[2019-05-12 08:15] LABS: Basophils % (A) 0 %; Eosinophils # (A) 0.1 k/uL (0-0.7); Eosinophils % (A) 1 %; HCT 34.3 % (34.0-46.0); HGB 11.1 gm/dL (11.4-16.0); Lymphocytes # (A) 1.1 k/uL (1.0-4.8); Lymphocytes % (A) 8 %; MCH 26.8 pg (25.0-35.0); MCHC 32.4 g/dL (31.0-37.0); MCV 82.7 fL (80.0-100.0); Mean Platelet Volume 6.9; Monocytes # (A) 0.2 k/uL (0-1.0); Monocytes % (A) 2 %; Neutrophils # (A) 13.5 k/uL (1.3-7.7); Neutrophils % (A) 90 %; Platelet Count 390 k/uL (150-450); RBC 4.14 m/uL (3.80-5.40); RDW 13.3 % (11.5-15.5)
[2019-05-12 08:31] LABS: African American GFR (CKD) >90 (>60 ml/min/1.73 sqM); Anion Gap 6 mmol/L; Blood Urea Nitrogen 19 mg/dL (7-17); Carbon Dioxide 24 mmol/L (22-30); Chloride 110 mmol/L (98-107); Glucose 152 mg/dL (74-99); Sodium 140 mmol/L (137-145)
[2019-05-12] MEDS: IPRATROPIUM-ALBUTEROL 3 ML NEB INHALATION PRN ×4 (09:06→20:01)
[2019-05-12] MEDS: methylPREDNISolone SOD SUCCI 40 MG/ML 1 ML VIAL IV SCH ×3 (09:17→21:09)
[2019-05-12] MEDS: FAMOTIDINE 20 MG TAB PO SCH ×2 (09:17→21:09)
[2019-05-12] MEDS: BENZONATATE 100 MG CAP PO SCH ×3 (09:17→22:21)
[2019-05-12] MEDS: MELOXICAM 7.5 MG TAB PO SCH (09:17)
[2019-05-12] MEDS: ENOXAPARIN 40 MG/0.4 ML SYRINGE SQ SCH (09:18)
[2019-05-12] MEDS: PROMETHAZ-COD 6.25-10 MG/5 ML 5 ML CUP PO PRN ×2 (09:28→21:20)
[2019-05-12 11:26] LABS: Glucose,Whole Blood 133 mg/dL (75-99)
[2019-05-12] MEDS: SODIUM CHLORIDE 0.9% 1,000 ML IV SCH ×2 (11:56→21:54)
--- NOTE | 2019-05-12 13:57 | P.PN ---
Subjective Progress Note Date: 05/12/19 Principal diagnosis: Acute asthma exacerbation Ms. Perez is a 44-year-old female with a past medical history of asthma, GERD, thyroid disorder coming into the hospital with a chief complaint of cough along with mild difficulty in breathing. Patient states that she has history of asthma and is only taking rescue inhaler at home. For the past 1 week she has increased wheezing and difficulty in breathing so she called her primary care physician who put her on Medrol Dosepak. In spite of being on it patient continued to have cough and difficulty in breathing. The cough is mostly dry in nature nonproductive. She denies having any fevers chills or rigors. Patient denies having any chest pain, palpitations, orthopnea or PND. No sick contacts. No abdominal pain nausea vomiting or diarrhea. No history of recent travel. No history of blood clots in the family, no history of DVT and PE. In the emergency department patient received breathing treatments, started on S zi-Medrol and azithromycin. She had chest x-ray done that was negative for any acute cardiopulmonary process. On 05/12/2019 - patient has been complaining of dry hacking type of cough all through the night. Cough is nonproductive. No difficulty in breathing. She denies having any fevers chills or rigors. No chest pain or palpitations. No abdominal pain nausea vomiting or diarrhea. No dysuria or hematuria. Patient medications and labs have been reviewed. Active Medications Albuterol Sulfate (Ventolin Nebulized) 2.5 mg INHALATION RT-QID PRN PRN Reason: Shortness Of Breath Albuterol/Ipratropium (Duoneb 0.5 Mg-3 Mg/3 Ml Soln) 3 ml INHALATION Q4HR PRN PRN Reason: Shortness Of Breath Or Wheezing Last Admin: 05/12/19 12:18 Dose: 3 ml Documented by: Azithromycin (Zithromax) 500 mg PO DAILY [facility] Benzonatate (Tessalon Perles) 200 mg PO TID [facility] Last Admin: 05/12/19 09:17 Dose: 200 mg Documented by: Enoxaparin Sodium (Lovenox) 40 mg SQ DAILY [facility] Last Admin: 05/12/19 09:18 Dose: Not Given Documented by: Famotidine (Pepcid) 20 mg PO BID [facility] Last Admin: 05/12/19 09:17 Dose: 20 mg Documented by: Sodium Chloride (Saline 0.9%) 1,000 mls @ 100 mls/hr IV .Q10H [facility] Last Admin: 05/12/19 11:56 Dose: Not Given Documented by: Meloxicam (Mobic) 7.5 mg PO DAILY [facility] Last Admin: 05/12/19 09:17 Dose: 7.5 mg Documented by: Methylprednisolone Sodium Succinate (Solu-Medrol) 40 mg IV Q8HR [facility] Last Admin: 05/12/19 09:17 Dose: 40 mg Documented by: Naloxone HCl (Narcan) 0.2 mg IV Q2M PRN PRN Reason: Opioid Reversal Promethazine HCl/Codeine (Phenergan With Codeine) 5 ml PO Q6H PRN PRN Reason: Cold Symptoms Last Admin: 05/12/19 09:28 Dose: 5 ml Documented by: Objective - Vital Signs Vital signs: Vital Signs Temp 98.2 F 05/12/19 05:00 Pulse 93 05/12/19 12:30 Resp 16 05/12/19 05:00 BP 126/61 05/12/19 05:00 Pulse Ox 95 05/12/19 05:00 Intake & Output 05/11/19 05/12/19 05/12/19 18:59 06:59 18:59 Intake Total 2130 Balance 2130 Intake: Oral 2130 Other: Voiding Method Toilet Toilet Toilet # Voids 3 2 - Exam GEN. APPEARANCE: alert, in no apparent distress HEAD EXAM: atraumatic, normocephalic, normal inspectiont RESPIRATORY EXAM: Patient has dry cough. normal lung sounds bilaterally. No wheezes or crackles. CARDIOVASCULAR EXAM: S1-S2 heard. Not sure sounds. GI/ABDOMINAL EXAM: soft, normal bowel sounds. Absent: distended, tenderness, guarding, rebound, rigid EXTREMITIES EXAM: No lower extremity edema NEUROLOGICAL EXAM: alert, oriented X3, no focal neurological deficits PSYCHIATRIC EXAM: normal affect, normal mood SKIN EXAM: warm, dry, intact, normal color. Absent: rash - Labs CBC & Chem 7: 05/12/19 07:42 05/12/19 07:42 Labs: Abnormal Lab Results - Last 24 Hours (Table) 05/11/19 05/11/19 05/12/19 Range/Units 16:42 20:02 07:06 WBC (3.8-10.6) k/uL Hgb (11.4-16.0) gm/dL Neutrophils # (1.3-7.7) k/uL Chloride (98-107) mmol/L BUN (7-17) mg/dL Creatinine (0.52-1.04) mg/dL Glucose (74-99) mg/dL POC Glucose (mg/dL) 165 H 203 H 149 H (75-99) mg/dL 05/12/19 05/12/19 05/12/19 Range/Units 07:42 07:42 11:25 WBC 15.0 H (3.8-10.6) k/uL Hgb 11.1 L (11.4-16.0) gm/dL Neutrophils # 13.5 H (1.3-7.7) k/uL Chloride 110 H (98-107) mmol/L BUN 19 H (7-17) mg/dL Creatinine 0.48 L (0.52-1.04) mg/dL Glucose 152 H (74-99) mg/dL POC Glucose (mg/dL) 133 H (75-99) mg/dL Microbiology - Last 24 Hours (Table) 05/11/19 00:50 Blood Culture - Preliminary Blood No Growth after 24 hours Assessment and Plan Assessment: ASSESSMENT Acute asthma exacerbation secondary to tracheobronchitis GERD/reflux disease Thyroid disorder Morbid obesity with a BMI of 42 PLAN: Patient has been started on IV Solu-Medrol, breathing treatments and azithromycin which will be continued. Patient mentions about having a mucous plug in the past . As the patient has persistent cough will consult pulmonary . Further recommendations to follow depending on the progress of the patient.
[2019-05-12] MEDS: AZITHROMYCIN 500 MG TAB PO SCH (16:48)
[2019-05-12 17:17] LABS: Glucose,Whole Blood 174 mg/dL (75-99)
[2019-05-12 20:27] LABS: Glucose,Whole Blood 144 mg/dL (75-99)
[2019-05-13] MEDS: SODIUM CHLORIDE 0.9% 1,000 ML IV SCH ×3 (03:57→21:03)
[2019-05-13] MEDS: PROMETHAZ-COD 6.25-10 MG/5 ML 5 ML CUP PO PRN ×2 (04:01→10:07)
[2019-05-13 07:06] LABS: Glucose,Whole Blood 141 mg/dL (75-99)
[2019-05-13] MEDS: IPRATROPIUM-ALBUTEROL 3 ML NEB INHALATION PRN (08:43)
[2019-05-13 09:13] LABS: Basophils % (A) 0 %; Eosinophils # (A) 0.2 k/uL (0-0.7); Eosinophils % (A) 1 %; HGB 12.3 gm/dL (11.4-16.0); Lymphocytes # (A) 1.8 k/uL (1.0-4.8); Lymphocytes % (A) 11 %; MCH 26.2 pg (25.0-35.0); MCHC 31.5 g/dL (31.0-37.0); MCV 83.3 fL (80.0-100.0); Mean Platelet Volume 6.8; Monocytes # (A) 0.3 k/uL (0-1.0); Monocytes % (A) 2 %; Neutrophils # (A) 13.2 k/uL (1.3-7.7); Neutrophils % (A) 85 %; Platelet Count 485 k/uL (150-450); RBC 4.68 m/uL (3.80-5.40); RDW 13.7 % (11.5-15.5); WBC 15.5 k/uL (3.8-10.6)
[2019-05-13] MEDS: methylPREDNISolone SOD SUCCI 40 MG/ML 1 ML VIAL IV SCH ×3 (09:46→23:49)
[2019-05-13] MEDS: ENOXAPARIN 40 MG/0.4 ML SYRINGE SQ SCH (09:46)
[2019-05-13] MEDS: FAMOTIDINE 20 MG TAB PO SCH ×2 (09:47→20:59)
[2019-05-13] MEDS: BENZONATATE 100 MG CAP PO SCH ×3 (09:47→22:24)
[2019-05-13] MEDS: MELOXICAM 7.5 MG TAB PO SCH (09:47)
[2019-05-13] MEDS: AZITHROMYCIN 500 MG TAB PO SCH (09:47)
[2019-05-13 11:22] LABS: Glucose,Whole Blood 124 mg/dL (75-99)
[2019-05-13] MEDS: IPRATROPIUM-ALBUTEROL 3 ML NEB INHALATION SCH ×3 (12:02→20:39)
--- NOTE | 2019-05-13 12:38 | P.CNPUL ---
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 She developed symptoms of postnasal drainage and pressure along her right maxillary sinus and then started having increased cough congestion chest that is a wheezing typical of an underlying asthma exacerbation. Her symptoms progressively was getting worse and she took a course of Medrol Dosepak to her primary care physician without much improvement. At that point she decided to come in for further advice. She is a nonsmoker. No history of any chronic pulmonary lung disease other than history of asthma and this was also no family. No DVT. No pulmonary embolism. There is a first hospital physician for asthma related complications. She used to take iron of prednisone tapers for asthma control. No leg swelling. She is improving and she reports that there has been at least 25-30% improvement in her condition since she is common. Blood work is all within normal limits. She is taking bronchodilators with DuoNeb around the clock. She is also on IV Solu-Medrol. Review of Systems Constitutional: Reports fatigue Eyes: denies as per HPI, denies blurred vision, denies bulging eye, denies decreased vision, denies diplopia, denies discharge, denies dry eye, denies irritation, denies itching, denies pain, denies photophobia, denies loss of peripheral vision, denies loss of vision, denies tunnel vision/blind spots Ears: deny: decreased hearing, ear discharge, earache, tinnitus Ears, nose, mouth and throat: Denies headache, Denies sore throat Breasts: absent: as per HPI, change in shape, gynecomastia, masses, nipple discharge, pain, skin changes, swelling Cardiovascular: Reports decreased exercise tolerance, Reports dyspnea on exertion Respiratory: Reports cough, Reports dyspnea, Reports wheezing Gastrointestinal: Reports as per HPI Genitourinary: Reports as per HPI Menstruation: Reports as per HPI Musculoskeletal: Reports as per HPI Musculoskeletal: absent: ankle pain, ankle stiffness, ankle swelling Integumentary: Reports as per HPI Neurological: Reports as per HPI Psychiatric: Reports as per HPI Endocrine: Reports as per HPI Hematologic/Lymphatic: Reports as per HPI Allergic/Immunologic: Reports as per HPI Past Medical History Past Medical History: Asthma, GERD/Reflux, Thyroid Disorder Additional Past Medical History / Comment(s): Arthitis History of Any Multi-Drug Resistant Organisms: None Reported Past Surgical History: Section, Hysterectomy Past Psychological History: No Psychological Hx Reported Smoking Status: Never smoker Past Alcohol Use History: None Reported Past Drug Use History: None Reported - Past Family History Son(s) Family Medical History: No Reported History Medications and Allergies Home Medications Medication Instructions Recorded Confirmed Type Ranitidine HCl [Zantac] 150 mg PO BID 12/09/14 05/10/19 History Bovine Thyroid Support 2 cap PO DAILY 09/14/18 05/10/19 History Celecoxib [CeleBREX] 200 mg PO DAILY 09/14/18 05/10/19 History Albuterol Inhaler [Ventolin Hfa 2 puff INHALATION Q6HR PRN #1 10/24/18 05/10/19 Rx Inhaler] inhaler Albuterol Nebulized [Ventolin 2.5 mg INHALATION RT-QID PRN 10/24/18 05/10/19 History Nebulized] methylPREDNISolone Dose Pack See Taper PO DAILY 05/10/19 05/10/19 History [Medrol Dose Pack] Allergies Allergy/AdvReac Type Severity Reaction Status Date / Time Penicillins Allergy Rash/Hives Verified 10/24/18 19:58 Physical Exam Vitals: Vital Signs Temp Pulse Pulse Resp BP Pulse Ox 05/13/19 12:20 87 05/13/19 12:05 89 05/13/19 08:57 87 05/13/19 08:43 89 05/13/19 04:53 97.0 F L 67 16 155/77 93 L 05/13/19 00:00 86 16 05/12/19 21:00 98.2 F 86 16 133/72 92 L 05/12/19 20:13 86 05/12/19 20:03 82 05/12/19 16:00 77 19 05/12/19 15:58 88 05/12/19 15:48 83 05/12/19 13:00 98.1 F 77 19 122/74 93 L 05/12/19 12:30 93 Intake and Output 05/12/19 05/13/19 05/13/19 22:59 06:59 14:59 Intake Total 1180 240 Balance 1180 240 Intake: Intake, IV Titration 0 Amount Sodium Chloride 0.9% 1, 0 000 ml @ 100 mls/hr IV . Q10H [facility] Rx#:[id number] Oral 1180 240 Other: Voiding Method Toilet Toilet Toilet # Voids 2 3 The patient appeared well nourished and normally developed. Vital signs as documented. Head exam is unremarkable. No scleral icterus or corneal arcus noted. Neck is without jugular venous distension, thyromegaly, or carotid br uits. Carotid upstrokes are brisk bilaterally. Lungs are diminished breath sounds bilaterally along with prolongation of the expiratory phase of breathing and diffuse expiratory wheezes throughout the lung maxwell bilaterally.. Cardiac exam reveals the PMI to be normally sized and situated. Rhythm is regular. First and second heart sounds normal. No murmurs, rubs or gallops. Abdominal exam reveals normal bowel sounds, no masses, no organomegaly and no aortic enlargement. Extremities are nonedematous and both femoral and pedal pulses are normal.Examination of the skin revealed no evidence of significant rashes, suspicious appearing nevi or other concerning lesions. Neurologically the patient is awake and alert and there is no focal neurological deficit. Results - Laboratory Findings CBC and BMP: 05/13/19 08:33 05/12/19 07:42 PT/INR, D-dimer D-Dimer 0.48 mg/L FEU (<0.60) 05/10/19 22:49 Abnormal lab findings: Abnormal Labs 05/10/19 05/10/19 05/10/19 22:49 22:49 22:49 WBC 14.6 H Hgb MCV 79.2 L Plt Count Neutrophils # 10.7 H Potassium 3.1 L Chloride BUN 19 H Creatinine Glucose 126 H POC Glucose (mg/dL) Plasma Lactic Acid Luke 2.2 H* 05/11/19 05/11/19 05/11/19 07:12 10:59 16:42 WBC Hgb MCV Plt Count Neutrophils # Potassium Chloride BUN Creatinine Glucose POC Glucose (mg/dL) 185 H 162 H 165 H Plasma Lactic Acid Luke 05/11/19 05/12/19 05/12/19 20:02 07:06 07:42 WBC 15.0 H Hgb 11.1 L MCV Plt Count Neutrophils # 13.5 H Potassium Chloride BUN Creatinine Glucose POC Glucose (mg/dL) 203 H 149 H Plasma Lactic Acid Luke 05/12/19 05/12/19 05/12/19 07:42 11:25 17:16 WBC Hgb MCV Plt Count Neutrophils # Potassium Chloride 110 H BUN 19 H Creatinine 0.48 L Glucose 152 H POC Glucose (mg/dL) 133 H 174 H Plasma Lactic Acid Luke 05/12/19 05/13/19 05/13/19 20:26 07:04 08:33 WBC 15.5 H Hgb MCV Plt Count 485 H Neutrophils # 13.2 H Potassium Chloride BUN Creatinine Glucose POC Glucose (mg/dL) 144 H 141 H Plasma Lactic Acid Luke 05/13/19 11:19 WBC Hgb MCV Plt Count Neutrophils # Potassium Chloride BUN Creatinine Glucose POC Glucose (mg/dL) 124 H Plasma Lactic Acid Luke - Diagnostic Findings Chest x-ray: image reviewed Assessment and Plan Plan: 1 exacerbation of chronic bronchial asthma. The patient started with symptoms of URI. Currently she has bronchitis and possibly some early lower lobe pneumonia. She is gradually improving 2 shortness of breath and cough secondary to above 3 hypothyroidism 4 acid reflux 5 obesity with a BMI of 42.1 with possible obstructive sleep apnea 6 chronic environmental ALLERGIES Plan Continue DuoNeb nebulized treatments around the clock 4 times a day. At Perforomist and Pulmicort nebulized treatments twice a day. IV Solu-Medrol to 40 every 6 hours [id number]. Add Rocephin. Continue Zithromax. We'll continue to follow.
--- NOTE | 2019-05-13 12:41 | P.PN ---
Subjective Progress Note Date: 05/13/19 Principal diagnosis: Acute asthma exacerbation Ms. Perez is a 44-year-old female with a past medical history of asthma, GERD, thyroid disorder coming into the hospital with a chief complaint of cough along with mild difficulty in breathing. Patient states that she has history of asthma and is only taking rescue inhaler at home. For the past 1 week she has increased wheezing and difficulty in breathing so she called her primary care physician who put her on Medrol Dosepak. In spite of being on it patient continued to have cough and difficulty in breathing. The cough is mostly dry in nature nonproductive. She denies having any fevers chills or rigors. Patient denies having any chest pain, palpitations, orthopnea or PND. No sick contacts. No abdominal pain nausea vomiting or diarrhea. No history of recent travel. No history of blood clots in the family, no history of DVT and PE. In the emergency department patient received breathing treatments, started on S zi-Medrol and azithromycin. She had chest x-ray done that was negative for any acute cardiopulmonary process. On 05/13/2019 - patient is still complaining of dry hacking cough. She states that she had some secretions overnight, but was not able to cough it up. She complains of chest soreness due to her cough. Denies having any fevers chills or rigors. No abdominal pain nausea vomiting or diarrhea. No dysuria or hematuria. She thinks she is doing worse than yesterday. Patient's medications and labs have been reviewed. Active Medications Albuterol Sulfate (Ventolin Nebulized) 2.5 mg INHALATION RT-QID PRN PRN Reason: Shortness Of Breath Albuterol/Ipratropium (Duoneb 0.5 Mg-3 Mg/3 Ml Soln) 3 ml INHALATION Q4HR PRN PRN Reason: Shortness Of Breath Or Wheezing Last Admin: 05/13/19 08:43 Dose: 3 ml Documented by: Albuterol/Ipratropium (Duoneb 0.5 Mg-3 Mg/3 Ml Soln) 3 ml INHALATION RT-QID [facility] Last Admin: 05/13/19 12:02 Dose: 3 ml Documented by: Azithromycin (Zithromax) 500 mg PO DAILY [facility] Last Admin: 05/13/19 09:47 Dose: 500 mg Documented by: Benzonatate (Tessalon Perles) 200 mg PO TID [facility] Last Admin: 05/13/19 09:47 Dose: 200 mg Documented by: Budesonide (Pulmicort) 1 mg INHALATION RT-BID [facility] Enoxaparin Sodium (Lovenox) 40 mg SQ DAILY [facility] Last Admin: 05/13/19 09:46 Dose: 40 mg Documented by: Famotidine (Pepcid) 20 mg PO BID [facility] Last Admin: 05/13/19 09:47 Dose: 20 mg Documented by: Formoterol Fumarate (Perforomist) 20 mcg INHALATION RT-BID [facility] Sodium Chloride (Saline 0.9%) 1,000 mls @ 100 mls/hr IV .Q10H [facility] Last Admin: 05/13/19 03:57 Dose: Not Given Documented by: Ceftriaxone Sodium 1 gm/ (Sodium Chloride) 50 mls @ 100 mls/hr IVPB Q24HR [facility] Meloxicam (Mobic) 7.5 mg PO DAILY [facility] Last Admin: 05/13/19 09:47 Dose: 7.5 mg Documented by: Methylprednisolone Sodium Succinate (Solu-Medrol) 40 mg IV Q8HR [facility] Last Admin: 05/13/19 09:46 Dose: 40 mg Documented by: Naloxone HCl (Narcan) 0.2 mg IV Q2M PRN PRN Reason: Opioid Reversal Promethazine HCl/Codeine (Phenergan With Codeine) 5 ml PO Q6H PRN PRN Reason: Cold Symptoms Last Admin: 05/13/19 10:07 Dose: 5 ml Documented by: Objective - Vital Signs Vital signs: Vital Signs Temp 97.0 F L 05/13/19 04:53 Pulse 87 05/13/19 12:20 Resp 16 05/13/19 04:53 BP 155/77 05/13/19 04:53 Pulse Ox 93 L 05/13/19 04:53 Intake & Output 05/12/19 05/13/19 05/13/19 18:59 06:59 18:59 Intake Total 1420 Balance 1420 Intake: Intake, IV Titration 0 Amount Sodium Chloride 0.9% 1, 0 000 ml @ 100 mls/hr IV . Q10H [facility] Rx#:[id number] Oral 1420 Other: Voiding Method Toilet Toilet Toilet # Voids 2 3 - Exam GEN. APPEARANCE: alert, in no apparent distress HEAD EXAM: atraumatic, normocephalic, normal inspectiont RESPIRATORY EXAM: Patient has dry cough. Bilateral coarse breath sounds. Mild wheezes bilaterally. CARDIOVASCULAR EXAM: S1-S2 heard. Not sure sounds. GI/ABDOMINAL EXAM: soft, normal bowel sounds. Absent: distended, tenderness, guarding, rebound, rigid EXTREMITIES EXAM: No lower extremity edema NEUROLOGICAL EXAM: alert, oriented X3, no focal neurological deficits PSYCHIATRIC EXAM: normal affect, normal mood SKIN EXAM: warm, dry, intact, normal color. Absent: rash - Labs CBC & Chem 7: 05/13/19 08:33 05/12/19 07:42 Labs: Abnormal Lab Results - Last 24 Hours (Table) 05/12/19 05/12/19 05/13/19 Range/Units 17:16 20:26 07:04 WBC (3.8-10.6) k/uL Plt Count (150-450) k/uL Neutrophils # (1.3-7.7) k/uL POC Glucose (mg/dL) 174 H 144 H 141 H (75-99) mg/dL 05/13/19 05/13/19 Range/Units 08:33 11:19 WBC 15.5 H (3.8-10.6) k/uL Plt Count 485 H (150-450) k/uL Neutrophils # 13.2 H (1.3-7.7) k/uL POC Glucose (mg/dL) 124 H (75-99) mg/dL Microbiology - Last 24 Hours (Table) 05/11/19 00:50 Blood Culture - Preliminary Blood No Growth after 48 hours Assessment and Plan Assessment: ASSESSMENT Acute asthma exacerbation secondary to tracheobronchitis GERD/reflux disease Thyroid disorder Morbid obesity with a BMI of 42 PLAN: Patient's respiratory status has worsened compared to yesterday. Pulmonary Dr. Mccallum has seen the patient and started on ceftriaxone. Will continue with Solu-Medrol and Zithromax that she has already been getting. Continue with breathing treatments. Patient was encouraged to do incentive spirometry. Continue with GI /DVT prophylaxis. Further recommendations to follow depending on the progress of the patient.
[2019-05-13 16:58] LABS: Glucose,Whole Blood 175 mg/dL (75-99)
[2019-05-13] MEDS: BUDESONIDE 1 MG/2 ML NEBU INHALATION SCH (20:39)
[2019-05-13] MEDS: FORMOTEROL FUMARATE 20 MCG/2 ML NEBU INHALATION SCH (20:39)
[2019-05-13 21:10] LABS: Glucose,Whole Blood 175 mg/dL (75-99)
[2019-05-14 07:01] LABS: Glucose,Whole Blood 138 mg/dL (75-99)
[2019-05-14 08:33] LABS: Basophils % (A) 0 %; Eosinophils # (A) 0.1 k/uL (0-0.7); Eosinophils % (A) 1 %; HCT 37.5 % (34.0-46.0); HGB 12.2 gm/dL (11.4-16.0); Lymphocytes # (A) 1.3 k/uL (1.0-4.8); Lymphocytes % (A) 10 %; MCH 27.2 pg (25.0-35.0); MCHC 32.5 g/dL (31.0-37.0); MCV 83.9 fL (80.0-100.0); Monocytes # (A) 0.4 k/uL (0-1.0); Monocytes % (A) 3 %; Neutrophils % (A) 85 %; Platelet Count 412 k/uL (150-450); RBC 4.47 m/uL (3.80-5.40); RDW 13.7 % (11.5-15.5); WBC 12.9 k/uL (3.8-10.6)
[2019-05-14] MEDS: BENZONATATE 100 MG CAP PO SCH ×3 (08:48→21:51)
[2019-05-14] MEDS: AZITHROMYCIN 500 MG TAB PO SCH (08:49)
[2019-05-14] MEDS: FAMOTIDINE 20 MG TAB PO SCH ×2 (08:49→21:12)
[2019-05-14] MEDS: MELOXICAM 7.5 MG TAB PO SCH (08:49)
[2019-05-14] MEDS: methylPREDNISolone SOD SUCCI 40 MG/ML 1 ML VIAL IV SCH ×3 (08:49→23:53)
[2019-05-14] MEDS: ENOXAPARIN 40 MG/0.4 ML SYRINGE SQ SCH (08:50)
[2019-05-14] MEDS: PROMETHAZ-COD 6.25-10 MG/5 ML 5 ML CUP PO PRN (09:00)
[2019-05-14] MEDS: BUDESONIDE 1 MG/2 ML NEBU INHALATION SCH ×2 (09:22→20:41)
[2019-05-14] MEDS: FORMOTEROL FUMARATE 20 MCG/2 ML NEBU INHALATION SCH ×2 (09:22→20:41)
[2019-05-14] MEDS: IPRATROPIUM-ALBUTEROL 3 ML NEB INHALATION SCH ×5 (09:22→20:41)
[2019-05-14] MEDS: SODIUM CHLORIDE 0.9% 1,000 ML IV SCH ×2 (09:58→21:49)
[2019-05-14] MEDS: PROMETHAZ-COD 6.25-10 MG/5 ML 5 ML CUP PO SCH ×2 (11:06→19:38)
[2019-05-14 11:10] LABS: Glucose,Whole Blood 127 mg/dL (75-99)
--- NOTE | 2019-05-14 11:30 | P.PN ---
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 She developed symptoms of postnasal drainage and pressure along her right maxillary sinus and then started having increased cough congestion chest that is a wheezing typical of an underlying asthma exacerbation. Her symptoms progressively was getting worse and she took a course of Medrol Dosepak to her primary care physician without much improvement. At that point she decided to come in for further advice. She is a nonsmoker. No history of any chronic pulmonary lung disease other than history of asthma and this was also no family. No DVT. No pulmonary embolism. There is a first hospital physician for asthma related complications. She used to take iron of prednisone tapers for asthma control. No leg swelling. She is improving and she reports that there has been at least 25-30% improvement in her condition since she is common. Blood work is all within normal limits. She is taking bronchodilators with DuoNeb around the clock. She is also on IV Solu-Medrol. On 05/14/2019 patient seen in follow-up on the medical surgical floor. She is still coughing quite a bit, but she states she feels like the phlegm is breaking up, and she is able to bring up some small amount of phlegm. Lung sounds less bronchospastic, still some scattered rhonchi and coarse breath sounds bilaterally. Overall improved, patient is up ambulating to the bathroom and back and tolerating activity fairly well. Pulse ox is 93%. Patient denies any chest pain, she states her throat and chest does not feel as tight. No fever or chills. Currently on Zithromax and Rocephin, blood culture showed no growth, we have not been able to send sputum culture yet. Objective - Vital Signs Vital signs: Vital Signs Temp 98.1 F 05/14/19 05:00 Pulse 82 05/14/19 09:45 Resp 18 05/14/19 05:00 BP 114/71 05/14/19 05:00 Pulse Ox 93 L 05/14/19 05:00 Intake & Output 05/13/19 05/14/19 05/14/19 18:59 06:59 18:59 Intake Total 240 Balance 240 Intake: Oral 240 Other: Voiding Method Toilet Toilet Toilet # Voids 3 1 - Exam GENERAL EXAM: Alert, pleasant, 44-year-old white female comfortable in no apparent distress. HEAD: Normocephalic/atraumatic. EYES: Normal reaction of pupils, equal size. Conjunctiva pink, sclera white. NOSE: Clear with pink turbinates. THROAT: No erythema or exudates. NECK: No masses, no JVD, no thyroid enlargement, no adenopathy. CHEST: No chest wall deformity. Symmetrical expansion. LUNGS: Equal air entry with coarse breath sounds, scattered rhonchi CVS: Regular rate and rhythm, normal S1 and S2, no gallops, no murmurs, no rubs ABDOMEN: Soft, nontender. No hepatosplenomegaly, normal bowel sounds, no guarding or rigidity. EXTREMITIES: No clubbing, no edema, no cyanosis, 2+ pulses and upper and lower extremities. MUSCULOSKELETAL: Muscle strength and tone normal. SPINE: No scoliosis or deformity SKIN: No rashes CENTRAL NERVOUS SYSTEM: Alert and oriented -3. No focal deficits, tone is normal in all 4 extremities. PSYCHIATRIC: Alert and oriented -3. Appropriate affect. Intact judgment and insight. - Labs CBC & Chem 7: 05/14/19 07:30 05/12/19 07:42 Labs: Abnormal Lab Results - Last 24 Hours (Table) 05/13/19 05/13/19 05/13/19 Range/Units 11:19 16:56 21:09 WBC (3.8-10.6) k/uL Neutrophils # (1.3-7.7) k/uL POC Glucose (mg/dL) 124 H 175 H 175 H (75-99) mg/dL 05/14/19 05/14/19 05/14/19 Range/Units 07:00 07:30 11:08 WBC 12.9 H (3.8-10.6) k/uL Neutrophils # 11.0 H (1.3-7.7) k/uL POC Glucose (mg/dL) 138 H 127 H (75-99) mg/dL Microbiology - Last 24 Hours (Table) 05/11/19 00:50 Blood Culture - Preliminary Blood No Growth after 72 hours Assessment and Plan Plan: Assessment: 1 exacerbation of chronic bronchial asthma. The patient started with symptoms of URI. Currently she has bronchitis and possibly some early lower lobe pneumonia. She is gradually improving 2 shortness of breath and cough secondary to above 3 hypothyroidism 4 acid reflux 5 obesity with a BMI of 42.1 with possible obstructive sleep apnea 6 chronic environmental ALLERGIES Plan: Obtain follow-up chest x-ray tomorrow morning, continue with nebulized bronchodilators, Pulmicort and Perforomist, continue with the same dose IV steroids, same antibiotic coverage with Zithromax and Rocephin, will scheduled cough syrup every 6 hours around the clock, continue Tessalon Perles. I performed a history & physical examination of the patient and discussed their management with my nurse practitioner, Rosa Yuan. I reviewed the nurse practitioner's note and agree with the documented findings and plan of care. Lung sounds are positive for coarse breath sounds with diffuse rhonchi. The findings and the impression was discussed with the patient. I attest to the documentation by the nurse practitioner. Time with Patient: Less than 30
--- NOTE | 2019-05-14 11:40 | CDI ---
Documentation Clarification Form Date: 05/14/2019 11:13:03 AM From: Trice Vera Admit Date: 05/13/2019 1:00:00 PM Patient Name: Ambreen Perez Visit Number: [id number] ATTENTION: The Clinical Documentation Specialists (CDI) and [facility] Coding Staff appreciate your assistance in clarifying documentation. Please respond to the clarification below the line at the bottom and electronically sign. The CDI & [facility] Coding staff will review the response and follow-up if needed. Please note: Queries are made part of the Legal Health Record. If you have any questions, please contact the author of this message via ITS. Dr. Ezra Mccallum Asthma is documented in the H&P, Consult, and Progress Notes, and requires further specificity. History/risk factors: Asthma, Gerd, thyroid disorder Clinical Indicators: 05/13 Attending Progress Note: "Acute asthma exacerbation secondary to tracheobronchitis 05/13 Pulmonary Consult: "exacerbation of chronic bronchial asthma. The patient started with symptoms of URI. Currently she has bronchitis and possibly some early lower lobe pneumonia. She is gradually improving." CXR: Mild peribronchial thickening and lower lung opacities, possible atelctasisis or developing infiltrate Vital Signs: Temp 98.3, Hr 114, RR 23, B/P [id number], Spo2 95 ra Treatment: Ventolin QID INH, Duoneb INH Q 4 hrs and PRN, Tesslon Pearls, Performamist INH BID, Solumedrol IV tapering dose Consults: Pulmonary In your professional opinion, can you please further specify the following, if known? With Acute Exacerbation Status asthmaticus Acute lower respiratory infection COPD (specify with or without exacerbation) Chronic obstructive bronchitis Other, please specify ___ Unable to determine Severity Mild intermittent Mild persistent Moderate persistent Severe persistent Other, please specify ____ Unable to determine Form or Type Cough variant Childhood Exercise induced bronchospasm Extrinsic allergic Idiosyncratic Intrinsic nonallergic Late-onset Mixed Other, please specify____ Unable to determine (Last Revision: January 2018) acute exacerbation of mild intermittent bronchial asthma. The patient has chronic childhood asthma. MTDD
[2019-05-14 17:53] LABS: Glucose,Whole Blood 176 mg/dL (75-99)
[2019-05-14 21:07] LABS: Glucose,Whole Blood 165 mg/dL (75-99)
--- NOTE | 2019-05-14 23:00 | P.PN ---
Subjective Progress Note Date: 05/14/19 Principal diagnosis: Acute asthma exacerbation Ms. Perez is a 44-year-old female with a past medical history of asthma, GERD, thyroid disorder coming into the hospital with a chief complaint of cough along with mild difficulty in breathing. Patient states that she has history of asthma and is only taking rescue inhaler at home. For the past 1 week she has increased wheezing and difficulty in breathing so she called her primary care physician who put her on Medrol Dosepak. In spite of being on it patient continued to have cough and difficulty in breathing. The cough is mostly dry in nature nonproductive. She denies having any fevers chills or rigors. Patient denies having any chest pain, palpitations, orthopnea or PND. No sick contacts. No abdominal pain nausea vomiting or diarrhea. No history of recent travel. No history of blood clots in the family, no history of DVT and PE. In the emergency department patient received breathing treatments, started on Solu-Medrol and azithromycin. She had chest x-ray done that was negative for any acute cardiopulmonary process. On 05/14/2019 - patient is still complaining of SOB not at base line yet. She mentions that she is able to cough up more than yesterday as she congestion seems to loosen up. On review of systems she denies any chest pain, palpitations. NO fever or chills. No abdominal pain, nausea or vomiting. No dysuria or hematuria. No LE swelling. Patient's medications and labs have been reviewed. Active Medications Albuterol Sulfate (Ventolin Nebulized) 2.5 mg INHALATION RT-QID PRN PRN Reason: Shortness Of Breath Last Admin: 05/14/19 16:52 Dose: 2.5 mg Documented by: Albuterol/Ipratropium (Duoneb 0.5 Mg-3 Mg/3 Ml Soln) 3 ml INHALATION Q4HR PRN PRN Reason: Shortness Of Breath Or Wheezing Last Admin: 05/13/19 08:43 Dose: 3 ml Documented by: Albuterol/Ipratropium (Duoneb 0.5 Mg-3 Mg/3 Ml Soln) 3 ml INHALATION RT-QID [facility] Last Admin: 05/14/19 20:41 Dose: 3 ml Documented by: Azithromycin (Zithromax) 500 mg PO DAILY [facility] Last Admin: 05/14/19 08:49 Dose: 500 mg Documented by: Benzonatate (Tessalon Perles) 200 mg PO TID [facility] Last Admin: 05/14/19 21:51 Dose: 200 mg Documented by: Budesonide (Pulmicort) 1 mg INHALATION RT-BID [facility] Last Admin: 05/14/19 20:41 Dose: 1 mg Documented by: Enoxaparin Sodium (Lovenox) 40 mg SQ DAILY [facility] Last Admin: 05/14/19 08:50 Dose: 40 mg Documented by: Famotidine (Pepcid) 20 mg PO BID [facility] Last Admin: 05/14/19 21:12 Dose: 20 mg Documented by: Formoterol Fumarate (Perforomist) 20 mcg INHALATION RT-BID [facility] Last Admin: 05/14/19 20:41 Dose: 20 mcg Documented by: Sodium Chloride (Saline 0.9%) 1,000 mls @ 100 mls/hr IV .Q10H [facility] Last Admin: 05/14/19 21:49 Dose: Not Given Documented by: Ceftriaxone Sodium 1 gm/ (Sodium Chloride) 50 mls @ 100 mls/hr IVPB Q24HR [facility] Last Admin: 05/14/19 08:48 Dose: 100 mls/hr Documented by: Meloxicam (Mobic) 7.5 mg PO DAILY [facility] Last Admin: 05/14/19 08:49 Dose: 7.5 mg Documented by: Methylprednisolone Sodium Succinate (Solu-Medrol) 40 mg IV Q8HR [facility] Last Admin: 05/14/19 16:40 Dose: 40 mg Documented by: Naloxone HCl (Narcan) 0.2 mg IV Q2M PRN PRN Reason: Opioid Reversal Promethazine HCl/Codeine (Phenergan With Codeine) 5 ml PO Q6HR [facility] Last Admin: 05/14/19 19:38 Dose: 5 ml Documented by: Objective - Vital Signs Vital signs: Vital Signs Temp 98.6 F 05/14/19 11:33 Pulse 88 05/14/19 17:05 Resp 18 05/14/19 17:05 BP 134/66 05/14/19 11:33 Pulse Ox 95 05/14/19 11:33 Intake & Output 05/13/19 05/14/19 05/14/19 18:59 06:59 18:59 Intake Total 240 Balance 240 Intake: Oral 240 Other: Voiding Method Toilet Toilet Toilet # Voids 3 1 2 - Exam GEN. APPEARANCE: alert, in no apparent distress HEAD EXAM: atraumatic, normocephalic, normal inspectiont RESPIRATORY EXAM: Bilateral ronchi. Expiratory wheezes bilaterally. CARDIOVASCULAR EXAM: S1-S2 heard. Not sure sounds. GI/ABDOMINAL EXAM: soft, normal bowel sounds. Absent: distended, tenderness, guarding, rebound, rigid EXTREMITIES EXAM: No lower extremity edema NEUROLOGICAL EXAM: alert, oriented X3, no focal neurological deficits PSYCHIATRIC EXAM: normal affect, normal mood SKIN EXAM: warm, dry, intact, normal color. Absent: rash - Labs CBC & Chem 7: 05/14/19 07:30 05/12/19 07:42 Labs: Abnormal Lab Results - Last 24 Hours (Table) 05/13/19 05/14/19 05/14/19 Range/Units 21:09 07:00 07:30 WBC 12.9 H (3.8-10.6) k/uL Neutrophils # 11.0 H (1.3-7.7) k/uL POC Glucose (mg/dL) 175 H 138 H (75-99) mg/dL 05/14/19 Range/Units 11:08 WBC (3.8-10.6) k/uL Neutrophils # (1.3-7.7) k/uL POC Glucose (mg/dL) 127 H (75-99) mg/dL Microbiology - Last 24 Hours (Table) 05/11/19 00:50 Blood Culture - Preliminary Blood No Growth after 72 hours Assessment and Plan Assessment: ASSESSMENT Acute asthma exacerbation secondary to tracheobronchitis GERD/reflux disease Thyroid disorder Morbid obesity with a BMI of 42 PLAN: Patient's respiratory status is still the same as yesterday. She is on Ceftriaxone and Zithromax. Will continue with Solu-Medrol and breathing treatments.Continue with GI /DVT prophylaxis. Following blood and sputum cultures. Further recommendations based on the clinical course.
[2019-05-15] MEDS: PROMETHAZ-COD 6.25-10 MG/5 ML 5 ML CUP PO SCH ×3 (01:05→12:02)
[2019-05-15] MEDS: SODIUM CHLORIDE 0.9% 1,000 ML IV SCH (05:21)
[2019-05-15 06:39] LABS: Glucose,Whole Blood 152 mg/dL (75-99)
--- NOTE | 2019-05-15 07:04 | XR ---
EXAMINATION TYPE: XR chest 2V DATE OF EXAM: 05/15/2019 COMPARISON: Chest x-ray from 5 days ago HISTORY: History of asthma with acute bronchitis. Prior abnormal x-ray. TECHNIQUE: Frontal and lateral views of the chest are obtained. FINDINGS: There is no new suspicious focal air space opacity, pleural effusion, or pneumothorax seen . Improved aeration lung bases. The cardiac silhouette size remains within normal limits. The osseo us structures are intact. IMPRESSION: No new acute infiltrate.
[2019-05-15 07:35] VITALS: TEMP 98.1
[2019-05-15] MEDS: BUDESONIDE 1 MG/2 ML NEBU INHALATION SCH (07:41)
[2019-05-15] MEDS: IPRATROPIUM-ALBUTEROL 3 ML NEB INHALATION SCH ×3 (07:41→15:16)
[2019-05-15] MEDS: FORMOTEROL FUMARATE 20 MCG/2 ML NEBU INHALATION SCH (07:41)
[2019-05-15] MEDS: MELOXICAM 7.5 MG TAB PO SCH (08:12)
[2019-05-15] MEDS: BENZONATATE 100 MG CAP PO SCH ×2 (08:12→15:38)
[2019-05-15] MEDS: methylPREDNISolone SOD SUCCI 40 MG/ML 1 ML VIAL IV SCH ×2 (08:12→09:13)
[2019-05-15] MEDS: AZITHROMYCIN 500 MG TAB PO SCH (08:12)
[2019-05-15] MEDS: FAMOTIDINE 20 MG TAB PO SCH (08:12)
[2019-05-15] MEDS: ENOXAPARIN 40 MG/0.4 ML SYRINGE SQ SCH (08:12)
[2019-05-15] MEDS ORDERED: predniSONE 50 MG TAB PO SCH (09:15)
[2019-05-15 11:51] LABS: Glucose,Whole Blood 112 mg/dL (75-99)
--- NOTE | 2019-05-15 14:09 | P.PN ---
Subjective Progress Note Date: 05/15/19 Principal diagnosis: Acute exacerbation of moderate intermittent chronic bronchial asthma. 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 She developed symptoms of postnasal drainage and pressure along her right maxillary sinus and then started having increased cough congestion chest that is a wheezing typical of an underlying asthma exacerbation. Her symptoms progressively was getting worse and she took a course of Medrol Dosepak to her primary care physician without much improvement. At that point she decided to come in for further advice. She is a nonsmoker. No history of any chronic pulmonary lung disease other than history of asthma and this was also no family. No DVT. No pulmonary embolism. There is a first hospital physician for asthma related complications. She used to take iron of prednisone tapers for asthma control. No leg swelling. She is improving and she reports that there has been at least 25-30% improvement in her condition since she is common. Blood work is all within normal limits. She is taking bronchodilators with DuoNeb around the clock. She is also on IV Solu-Medrol. On 05/14/2019 patient seen in follow-up on the medical surgical floor. She is still coughing quite a bit, but she states she feels like the phlegm is breaking up, and she is able to bring up some small amount of phlegm. Lung sounds less bronchospastic, still some scattered rhonchi and coarse breath sounds bilaterally. Overall improved, patient is up ambulating to the bathroom and back and tolerating activity fairly well. Pulse ox is 93%. Patient denies any chest pain, she states her throat and chest does not feel as tight. No fever or chills. Currently on Zithromax and Rocephin, blood culture showed no growth, we have not been able to send sputum culture yet. The patient is seen today 05/15/2019 in follow-up on the regular medical floor. She is currently sitting up at the bedside. Awake and alert in no acute distress. She is maintaining good O2 saturations in the mid 90s on room air. She's been afebrile. Hemodynamically stable. Blood culture reveals no growth. Blood glucose 112. She's been maintained on DuoNeb inhalations, Pulmicort and Perforomist, IV Solu-Medrol and antibiotics in the form of azithromycin. She is feeling nearly back to her baseline. She is continued with a dry cough. No chest tightness or wheezing. Objective - Vital Signs Vital signs: Vital Signs Temp 98.1 F 05/15/19 07:23 Pulse 80 05/15/19 11:17 Resp 18 05/15/19 07:23 BP 136/85 05/15/19 07:23 Pulse Ox 95 05/15/19 07:23 Intake & Output 05/14/19 05/15/19 05/15/19 18:59 06:59 18:59 Intake Total 600 240 Balance 600 240 Intake: Oral 600 240 Other: Voiding Method Toilet Toilet # Voids 2 1 - Exam GENERAL EXAM: Alert, active, comfortable in no apparent distress. On room air. HEAD: Normocephalic. EYES: Normal reaction of pupils, equal size. NOSE: Clear with pink turbinates. THROAT: No erythema or exudates. NECK: No masses, no JVD. CHEST: No chest wall deformity. LUNGS: Equal air entry with no crackles, wheeze, rhonchi or dullness. CVS: S1 and S2 normal with no audible murmur, regular rhythm. ABDOMEN: No hepatosplenomegaly, normal bowel sounds, no guarding or rigidity. SPINE: No scoliosis or deformity SKIN: No rashes CENTRAL NERVOUS SYSTEM: No focal deficits, tone is normal in all 4 extremities. EXTREMITIES: There is no peripheral edema. No clubbing, no cyanosis. Peripheral pulses are intact. - Labs CBC & Chem 7: 05/14/19 07:30 05/12/19 07:42 Labs: Abnormal Lab Results - Last 24 Hours (Table) 05/14/19 05/14/19 05/15/19 Range/Units 17:44 21:06 06:37 POC Glucose (mg/dL) 176 H 165 H 152 H (75-99) mg/dL 05/15/19 Range/Units 11:48 POC Glucose (mg/dL) 112 H (75-99) mg/dL Microbiology - Last 24 Hours (Table) 05/11/19 00:50 Blood Culture - Preliminary Blood No Growth after 96 hours Assessment and Plan Assessment: Assessment: 1 exacerbation of mild intermittent chronic bronchial asthma. The patient started with symptoms of URI. Currently she has bronchitis and possibly some early lower lobe pneumonia. She is nearly back to her baseline 2 shortness of breath and cough secondary to above 3 hypothyroidism 4 acid reflux 5 obesity with a BMI of 42.1 with possible obstructive sleep apnea 6 chronic environmental ALLERGIES Plan: The patient was seen and evaluated by Dr. Mccallum. She is improved from the pulmonary standpoint and could be discharged home on a prednisone burst and taper, completed course of antibiotics, continue albuterol. Add Symbicort. She will follow-up in our office in 1-2 weeks' time or call sooner with any recurrence of symptoms or other questions or concerns. I, the cosigning physician, performed a history & physical examination of the patient. Lungs sounds are clear. Maintaining good O2 saturations in the 90s on room air. I discussed the assessment and plan of care with my nurse practitioner, Karina Goldsmith. I attest to the above note as dictated by her.
[2019-05-15 14:44] VITALS: BP 113/74
[2019-05-15 15:19] VITALS: RESP 16
[2019-05-15 15:28] VITALS: PULSE 78
== END 2019-05-15 16:29 | disposition home or self-care (01) | DRG 202 ==
LOC: EC 22:10 → 3NMEDONC 05-11 00:45 → OBSVTOIN 05-13 13:00 → 6PED 05-14 16:45 → 4MS4W 05-15 07:28
PROVIDERS: ADMIT Internal Medicine; ATTEND Internal Medicine
DX: J45.21 Mild intermittent asthma with (acute) exacerbation (principal); J18.9 Pneumonia, unspecified organism; E87.2 Acidosis; Z68.41 Body mass index [BMI] 40.0-44.9, adult; E03.9 Hypothyroidism, unspecified; E66.01 Morbid (severe) obesity due to excess calories; G47.33 Obstructive sleep apnea (adult) (pediatric); J00 Acute nasopharyngitis [common cold]; K21.9 Gastro-esophageal reflux disease without esophagitis; Z79.1 Long term (current) use of non-steroidal anti-inflammatories (NSAID); Z79.899 Other long term (current) drug therapy; Z86.718 Personal history of other venous thrombosis and embolism; Z90.710 Acquired absence of both cervix and uterus; Z79.890 Hormone replacement therapy
CPT/HCPCS: 36415; 71046; 80048; 83605; 85025; 85379; 87040; 93005; 94640; 96365; 96366; 96368; 96375; 99285

== ENCOUNTER → 2019-06-12 | Outpatient (CLI) | payer BC ==
[2019-06-13 01:15] LABS: Cancer Antigen 125 12.1 U/mL (0.0-30.1)
[2019-06-13 01:49] LABS: Gliadin AB IgA, Deaminated NEGATIVE (NEGATIVE); Gliadin AB IgA, Unit <0.2 U/mL
[2019-06-13 01:50] LABS: Gliadin AB IgG, Deaminated NEGATIVE (NEGATIVE)
[2019-06-13 10:38] LABS: Anti-Endomysial IgA Antibody <1:10 Titer (<1:10)
[2019-06-13 12:13] LABS: Immunoglobulin A 83.2 mg/dL (60.0-350.0)
== END | disposition home or self-care (01) ==
LOC: LABWHC1 16:21
PROVIDERS: ATTEND Allergy & Immunology
DX: E03.9 Hypothyroidism, unspecified (principal); K21.9 Gastro-esophageal reflux disease without esophagitis; Z15.01 Genetic susceptibility to malignant neoplasm of breast
CPT/HCPCS: 36415; 82784; 83516; 84436; 84439; 84443; 86255; 86304

== ENCOUNTER → 2019-06-27 | Outpatient (CLI) | payer BC ==
--- NOTE | 2019-06-27 14:45 | CT ---
EXAMINATION TYPE: CT pelvis w con DATE OF EXAM: 06/27/2019 COMPARISON: None HISTORY: Elevated [id number] DLP: 1401 mGycm Automated exposure control for dose reduction was used. CONTRAST: Performed with IV Contrast, patient injected with 100 mL of Isovue 300. FINDINGS: Hysterectomy changes noted. No evidence for ovarian or adnexal mass. Mild sigmoid diverticulosis with out diverticulitis. No pelvic adenopathy or free fluid. Visualized gastrointestinal tract is of nayan l appearance. IMPRESSION: NO DISTINCT ABNORMALITY TO ACCOUNT FOR ABNORMAL LABWORK.
== END | disposition home or self-care (01) ==
LOC: RADCTMAIN 12:23
PROVIDERS: ATTEND Internal Medicine
DX: R97.1 Elevated cancer antigen 125 [CA 125] (principal); R10.2 Pelvic and perineal pain
CPT/HCPCS: 72193; Q9967

== ENCOUNTER 2019-08-29 10:20 | Day surgery (SDC) | payer BC ==
[2019-08-26 15:56] VITALS: BMI 40.0
[~2019-08-29 10:20] MED LIST: HYDROmorphone 0.5 MG/0.5 ML SYRINGE IVP PRN; LACTATED RINGERS 1,000 ML IV SCH; ONDANSETRON 4 MG/2 ML VIAL IVP PRN
[2019-08-29 10:42] VITALS: TEMP 97.4
[2019-08-29] MEDS ORDERED: LIDOCAINE 1% 20 ML VIAL (10MG/ML) FOR IV START INTRADERMA ONE (10:50)
[2019-08-29] MEDS ORDERED: PROPOFOL 10 MG/ML 20 ML VIAL IV ONE (11:31)
[2019-08-29] MEDS ORDERED: LIDOCAINE 1% INJ 10MG/ML (20 ML MDV) ONE (11:31)
--- NOTE | 2019-08-29 11:52 | P.PCN ---
Date of Procedure: 08/29/19 Procedure(s) Performed: Brief history: Patient is a pleasant 44-year-old white female scheduled for an elective upper endoscopy as well as colonoscopy as a part of evaluation of GERD/change in bowel habits/intermittent rectal bleeding on and off for the last few months duration. Procedure performed: Esophagogastroduodenoscopy with biopsy Colonoscopy Preoperative diagnosis: GERD Change in bowel habits and intermittent rectal bleeding Anesthesia: MAC Procedure: After informed consent was obtained from the patient was brought into the endoscopy unit and IV sedation was administered by anesthesia under continuous monitoring. Initially upper endoscopy was done. The Olympus GF 160 video endoscope was inserted inserted into the mouth and esophagus intubated without any difficulty and was gradually advanced into the stomach and duodenum and carefully examined. The bulb and second part of the duodenum appeared normal. Biopsies were done from the duodenum to rule out celiac disease. The scope was then withdrawn into the stomach adequately insufflated with air and upon careful examination the antrum had mild gastritis and biopsies were done from this area. The body, cardia and fundus appeared normal. The scope was then withdrawn into the esophagus. The GE junction was located at 34 cm to the incisors. Small size hiatal hernia noted. It appeared regular with no erythema erosions or ulcerations. Rest of the esophagus appeared normal. Patient tolerated the procedure well. At this time the patient continued to remain sedation. Initial digital rectal examination was normal. Olympus CF 160 video colonoscope was then inserted into the rectum and gradually advanced to the cecum without any difficulty. Careful examination was performed as the scope was gradually being withdrawn. The prep was excellent. The cecum, ascending colon, transverse colon, descending colon, sigmoid colon and rectum appeared normal. Retroflexion was performed in the rectum and no lesions were noted. Scattered left sided diverticulosis seen. Random biopsies were done from ascending and descending colon to rule out microscopic/collagenous colitis. Patient tolerated the procedure well. Impression: 1. Upper endoscopy revealed small hiatal hernia and mild antral gastritis 2. Colonoscopy revealed scattered sigmoid diverticulosis and small internal hemorrhoids Recommendations: Findings of this examination were discussed with the patient as well as her family. She was advised to follow with the biopsies results. She will continue with omeprazole 40 mg daily and follow antireflux measures. She'll be seen in office in 3-4 weeks..
[2019-08-29 12:16] VITALS: BP 130/66; PULSE 72; RESP 15
== END 2019-08-29 12:49 | disposition home or self-care (01) ==
LOC: ORWHC2ENDO 10:20
PROVIDERS: ATTEND Internal Medicine Gastroenterology
DX: K29.50 Unspecified chronic gastritis without bleeding (principal); K44.9 Diaphragmatic hernia without obstruction or gangrene; K57.30 Diverticulosis of large intestine without perforation or abscess without bleeding; K64.8 Other hemorrhoids; K21.9 Gastro-esophageal reflux disease without esophagitis; J45.909 Unspecified asthma, uncomplicated; Z79.51 Long term (current) use of inhaled steroids; Z79.899 Other long term (current) drug therapy; Z91.018 Allergy to other foods; Z91.09 Other allergy status, other than to drugs and biological substances; Z88.0 Allergy status to penicillin; Z88.1 Allergy status to other antibiotic agents; Z90.710 Acquired absence of both cervix and uterus
CPT/HCPCS: 88305; 45380; 43239; J2001; J2704

== ENCOUNTER → 2020-08-24 | Outpatient (CLI) | payer BC | END | disposition home or self-care (01) | LOC: LABWHC1 15:18 | PROVIDERS: ATTEND Obstetrics & Gynecology Female Pelvic Medicine and Reconstructive Surgery | DX: Z20.828 Contact with and (suspected) exposure to other viral communicable diseases (principal) | CPT/HCPCS: U0003; C9803 ==

== ENCOUNTER 2021-04-14 08:46 | Emergency (ER) | payer BC, OTHER ==
[2021-04-14 08:51] VITALS: BP 124/85; PULSE 75; RESP 16; TEMP 97.5
--- NOTE | 2021-04-14 09:22 | ED ---
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 She states the car the operating table she was a soft arm portion. She complains some right facial pain left neck pain states she twisted her left ankle but states it does not hurt this time. No loss of consciousness no nausea no vomiting no focal deficits. No other complaints or modifying factors at this time patient stated that she had taken ibuprofen about half hour prior to the incident. MD Complaint: fall - Related Data Home Medications Medication Instructions Recorded Confirmed Cetirizine HCl [Zyrtec] 10 mg PO DAILY 08/26/19 08/29/19 Omeprazole 40 mg PO DAILY 08/26/19 08/29/19 Budesonide-Formot 160-4.5 Mcg 2 puff IH BID 08/29/19 08/29/19 [Symbicort 160-4.5 Mcg Inhaler] Allergies Allergy/AdvReac Type Severity Reaction Status Date / Time aspartame Allergy Wheezing Verified 04/14/21 08:47 cephalexin [From Keflex] Allergy Dyspnea Verified 04/14/21 08:47 lavender (Lavandula Allergy Wheezing Verified 04/14/21 08:47 angustifolia) Penicillins Allergy Rash/Hives Verified 04/14/21 08:47 Review of Systems ROS Statement: Those systems with pertinent positive or pertinent negative responses have been documented in the HPI. ROS Other: All systems not noted in ROS Statement are negative. Past Medical History Past Medical History: Asthma, GERD/Reflux Additional Past Medical History / Comment(s): HX TROUBLE SWALLOWING AND BLOOD IN STOOL A FEW MONTHS BACK. POSITIVE FOR BRCA 1 History of Any Multi-Drug Resistant Organisms: None Reported Past Surgical History: Section, Hysterectomy Additional Past Surgical History / Comment(s): COLONOSCOPY, bladder supspension. Past Anesthesia/Blood Transfusion Reactions: No Reported Reaction Past Psychological History: No Psychological Hx Reported Smoking Status: Never smoker Past Alcohol Use History: None Reported Past Drug Use History: None Reported - Past Family History Son(s) Family Medical History: No Reported History Mother Family Medical History: Cancer General Exam - General Exam Comments Initial Comments: This is a well-developed well-nourished awake alert oriented 3 female with a [place] Coma Scale of 15 Limitations: no limitations General appearance: alert, in no apparent distress Head exam: Present: normocephalic, other (Abrasion seen over the right nasolabial fold and just above the right lip no active bleeding no repair indicated no step-off no crepitation no tenderness palpation of this area no facial tenderness palpation) Eye exam: Present: normal appearance ( dentition is intact, is intact), PERRL, EOMI. Absent: scleral icterus, conjunctival injection, periorbital swelling ENT exam: Present: normal exam, mucous membranes moist Neck exam: Present: normal inspection, tenderness, full ROM, other (No overt midline tenderness some tenderness palpation of the left lateral neck and trapezius muscle) Respiratory exam: Absent: chest wall tenderness Extremities exam: Present: normal inspection, full ROM, normal capillary refill. Absent: tenderness, pedal edema, joint swelling, calf tenderness Back exam: Present: normal inspection, full ROM. Absent: tenderness Neurological exam: Present: alert, oriented X3, CN II-XII intact Psychiatric exam: Present: normal affect, normal mood Skin exam: Present: warm, dry. Absent: intact (As noted above) Course Vital Signs 04/14/21 08:47 Temperature 97.5 F L Pulse Rate 75 Respiratory 16 Rate Blood Pressure 124/85 O2 Sat by Pulse 99 Oximetry - Reevaluation(s) Reevaluation #1: 04/14/21 09:21 Tetanus shots are up-to-date Medical Decision Making - Medical Decision Making I did discuss the findings with the patient she will be discharged no further imaging or workup is indicated at this time - Radiology Data Radiology results: report reviewed (Imaging reviewed no acute findings evidence of arthritic changes. Please see complete report), image reviewed Disposition Clinical Impression: Fall, Cervical strain, Facial abrasion Disposition: HOME SELF-CARE Condition: Good Instructions (If sedation given, give patient instructions): Abrasion (ED), Cervical Strain (ED) Additional Instructions: Ibuprofen or acetaminophen for pain Is patient prescribed a controlled substance at d/c from ED?: No Referrals: Peyton Stearns MD [Primary Care Provider] - 1-2 days
--- NOTE | 2021-04-14 09:32 | XR ---
EXAMINATION TYPE: XR cervical spine comp DATE OF EXAM: 04/14/2021 TECHNIQUE: Frontal, lateral, oblique, swimmers, and open mouth view of the cervical spine are obtaine d. HISTORY: Fall COMPARISON: None FINDINGS: Vertebral body heights are preserved. Alignment is anatomic. No enlargement of the preverte bral soft tissues. There is anterior osteophytosis at C5-6. There is uncovertebral arthropathy with b beny encroachment upon the left C4-5 neural foramen. IMPRESSION: No definite acute traumatic injury. Disc disease and osteoarthritic changes of the cervic al spine, as described.
== END 2021-04-14 10:54 | disposition home or self-care (01) ==
LOC: EC 08:46
DX: S16.1XXA Strain of muscle, fascia and tendon at neck level, initial encounter (principal); S00.81XA Abrasion of other part of head, initial encounter; J45.909 Unspecified asthma, uncomplicated; K21.9 Gastro-esophageal reflux disease without esophagitis; Z79.51 Long term (current) use of inhaled steroids; Z79.899 Other long term (current) drug therapy; Z88.0 Allergy status to penicillin; Z88.1 Allergy status to other antibiotic agents; W01.198A Fall on same level from slipping, tripping and stumbling with subsequent striking against other object, initial encounter
CPT/HCPCS: 72050; 99283; 99284

== ENCOUNTER → 2021-04-15 | Outpatient (CLI) | payer OTHER | END | disposition home or self-care (01) | LOC: RADXRMAIN 12:44 | PROVIDERS: ATTEND Emergency Medicine | DX: Z53.9 Procedure and treatment not carried out, unspecified reason (principal) ==

== ENCOUNTER → 2021-04-15 | Outpatient (CLI) | payer OTHER ==
--- NOTE | 2021-04-15 14:04 | XR ---
EXAMINATION TYPE: XR lumbar spine 2 or 3V DATE OF EXAM: 04/15/2021 CLINICAL HISTORY: Pain after fall TECHNIQUE: Frontal, lateral, and coned-down images of the lumbar spine are obtained. COMPARISON: FINDINGS: There are 5 lumbar type vertebral bodies identified. The lumbar spine shows satisfactory alignment without evidence of acute fracture or dislocation. Vertebral body heights and disk space he ights are within normal limits. Multilevel osteophytosis is seen. IMPRESSION: No acute fracture or dislocation is seen in the lumbar spine. Multilevel disc disease.
--- NOTE | 2021-04-15 14:06 | XR ---
EXAMINATION TYPE: XR shoulder complete LT DATE OF EXAM: 04/15/2021 CLINICAL HISTORY: Pain after fall TECHNIQUE: Three views of the left shoulder are obtained. COMPARISON: None. FINDINGS: There is no acute fracture/dislocation evident in the left shoulder. Sclerotic lesion of t he proximal left humeral metadiaphysis appears similar to the prior chest radiograph. Degenerative ch anges are noted in the left acromioclavicular joint. IMPRESSION: There is no acute fracture or dislocation in the left shoulder. Chronic changes, as desc ribed
--- NOTE | 2021-04-15 14:07 | XR ---
EXAMINATION TYPE: XR thoracic spine complete DATE OF EXAM: 04/15/2021 CLINICAL HISTORY: Fall with mid back pain. TECHNIQUE: Frontal, lateral, and swimmer's view of thoracic spine are obtained. COMPARISON: None. FINDINGS: Thoracic spine show satisfactory alignment without evidence of acute fracture or dislocatio n. Vertebral body heights and disc space heights are preserved. Visualized ribs are unremarkable. Multilevel endplate sclerosis and osteophytosis is seen. IMPRESSION: No acute fracture or dislocation is seen in the thoracic spine. Multilevel disc disease.
--- NOTE | 2021-04-15 14:11 | CT ---
EXAMINATION TYPE: CT brain luis wo con DATE OF EXAM: 04/15/2021 COMPARISON: None HISTORY: 46-year-old female S00.83XA; S13.4XXA; S33.5XXA, Fall with facial injury yesterday and LOC. CT DLP: 1733.3 mGycm Automated exposure control for dose reduction was used. Technique: Examination of the head was done in axial plane without intravenous contrast. Coronal and sagittal reconstructions performed. CT of the cervical spine was obtained in axial plane without intravenous injection of contrast mater ial. Coronal and sagittal reformatted images were obtained from the axial views for evaluation of f ractures, spinal alignment and canal. FINDINGS: Head: There is no evidence of acute intracranial hemorrhage, acute ischemic changes, mass, mass-effect, or extra-axial fluid collection. There is no effacement of cerebral sulci or basal subarachnoid cister ns. There is no hydrocephalus. There is no midline shift. Wilder-white matter distinction is preserv ed. Partially empty sella incidentally noted. Mastoid air cells well pneumatized. The facial bones reported separately. Cervical spine: No craniocervical junction abnormality, predental space widening, or prevertebral soft tissue swellin g. Preserved alignment of the cervical spine. Mild degenerative disc disease C5-C6 with corresponding uncovertebral joint arthropathy. Limited assessment of the spinal canal from C6 and below due to artifact from patient's shoulders. No bony canal compromise is seen. Moderate to severe left foraminal stenosis at C5-C6. Minimal emphysematous change in the visualized upper lungs Sagittal and coronal reformatted images confirm above findings. COMBINED IMPRESSION: 1. No acute intracranial abnormality seen. 2. [id number] focal spondylitic change at C5-C6. This results in a moderate to severe left neur al foraminal stenosis at this level. 3. No acute fracture or malalignment of the cervical spine. 4. Facial bones reported separately.
--- NOTE | 2021-04-15 14:27 | CT ---
EXAMINATION TYPE: CT facial bones wo con DATE OF EXAM: 04/15/2021 COMPARISON: None HISTORY: 46-year-old female Fall with facial injury yesterday and LOC TECHNIQUE: Contiguous axial scanning of the facial bones without IV contrast. Coronal reconstructions performed. CT DLP: 628.7 mGycm Automated exposure control for dose reduction was used. FINDINGS: Borderline enlarged upper right cervical lymph node at 1.5 cm is nonspecific, probably reactive. Visualized intracranial structures show no gross abnormality. The mandible and TMJs as well as the pterygoid plates and zygomatic arches are intact. Facial bones, nasal bones, and orbits/globes appear intact. No significant mucosal thickening or air-fluid level of the paranasal sinuses. IMPRESSION: NO ACUTE FACIAL BONE FRACTURE SEEN.
== END | disposition home or self-care (01) ==
LOC: RADCTMAIN 12:49
PROVIDERS: ATTEND Emergency Medicine
DX: M51.36 Other intervertebral disc degeneration, lumbar region (principal); M25.512 Pain in left shoulder; M51.34 Other intervertebral disc degeneration, thoracic region; M47.812 Spondylosis without myelopathy or radiculopathy, cervical region; M99.71 Connective tissue and disc stenosis of intervertebral foramina of cervical region; W19.XXXA Unspecified fall, initial encounter
CPT/HCPCS: 70450; 70486; 72072; 72100; 72125

== ENCOUNTER → 2021-07-26 | Outpatient (CLI) | payer MEDICAID, OTHER | END | disposition home or self-care (01) | LOC: LABWHC1 14:57 | PROVIDERS: ATTEND Internal Medicine | DX: Z20.822 Contact with and (suspected) exposure to COVID-19 (principal) | CPT/HCPCS: 87635 ==

== ENCOUNTER → 2021-07-27 | Outpatient (CLI) | payer MEDICAID, OTHER | END | disposition home or self-care (01) | LOC: LABWHC1 15:45 | PROVIDERS: ATTEND Emergency Medicine | DX: Z20.822 Contact with and (suspected) exposure to COVID-19 (principal) | CPT/HCPCS: 87635 ==

== ENCOUNTER → 2021-11-25 | Outpatient (CLI) | payer MEDICAID | END | disposition home or self-care (01) | LOC: LABWHC1 14:34 | PROVIDERS: ATTEND Internal Medicine | DX: R97.1 Elevated cancer antigen 125 [CA 125] (principal) | CPT/HCPCS: 36415; 86304 ==

== ENCOUNTER 2022-02-14 15:44 | Emergency (ER) | payer MEDICAID, OTHER ==
[2022-02-14 17:29] VITALS: TEMP 98.4
[2022-02-14 20:51] VITALS: BP 122/89; PULSE 77; RESP 17
--- NOTE | 2022-02-14 20:52 | ED ---
General Adult HPI - General Chief complaint: Needlestick/Exposure Stated complaint: [facility] - Blood Exposure Time Seen by Provider: 02/14/22 19:54 Source: patient, RN notes reviewed Mode of arrival: ambulatory Limitations: no limitations - History of Present Illness Initial comments: Patient is a pleasant 47-year-old female presenting to the emergency department following injury. Patient was in the operating room when she accidentally was struck by forceps to the right ring finger. Patient states there was no bleeding. No other area of injury or concern. Patient states he did go through the glove and believes it may have punctured the skin. Patient noticed no injury on the ring finger when looking at it. - Related Data Home Medications Medication Instructions Recorded Confirmed Cetirizine HCl [Zyrtec] 10 mg PO DAILY 08/26/19 08/29/19 Omeprazole 40 mg PO DAILY 08/26/19 08/29/19 Budesonide-Formot 160-4.5 Mcg 2 puff [facility] BID 08/29/19 08/29/19 [Symbicort 160-4.5 Mcg Inhaler] Allergies Allergy/AdvReac Type Severity Reaction Status Date / Time aspartame Allergy Wheezing Verified 02/14/22 17:29 cephalexin [From Keflex] Allergy Dyspnea Verified 02/14/22 17:29 lavender (Lavandula Allergy Wheezing Verified 02/14/22 17:29 angustifolia) Penicillins Allergy Rash/Hives Verified 02/14/22 17:29 Review of Systems ROS Statement: Those systems with pertinent positive or pertinent negative responses have been documented in the HPI. ROS Other: All systems not noted in ROS Statement are negative. Constitutional: Denies: fever Eyes: Denies: eye pain ENT: Denies: ear pain Respiratory: Denies: cough Cardiovascular: Denies: chest pain Endocrine: Denies: fatigue Gastrointestinal: Denies: vomiting Genitourinary: Denies: dysuria Past Medical History Past Medical History: Asthma, GERD/Reflux Additional Past Medical History / Comment(s): HX TROUBLE SWALLOWING AND BLOOD IN STOOL A FEW MONTHS BACK. POSITIVE FOR BRCA 1 History of Any Multi-Drug Resistant Organisms: None Reported Past Surgical History: Section, Hysterectomy Additional Past Surgical History / Comment(s): COLONOSCOPY, bladder supspension. Past Anesthesia/Blood Transfusion Reactions: No Reported Reaction Past Psychological History: No Psychological Hx Reported Smoking Status: Never smoker Past Alcohol Use History: None Reported Past Drug Use History: None Reported - Past Family History Son(s) Family Medical History: No Reported History Mother Family Medical History: Cancer General Exam Limitations: no limitations General appearance: alert, in no apparent distress Head exam: Present: normocephalic Eye exam: Present: normal appearance Neck exam: Present: normal inspection Respiratory exam: Present: normal lung sounds bilaterally Cardiovascular Exam: Present: regular rate, normal rhythm Extremities exam: Present: normal inspection Skin exam: Present: other (Evaluate patient of the right ring finger without obvious injury visualized). Absent: abrasion Course Vital Signs 02/14/22 17:26 Temperature 98.4 F Pulse Rate 86 Respiratory 18 Rate Blood Pressure 120/72 O2 Sat by Pulse 99 Oximetry - Reevaluation(s) Reevaluation #1: 02/14/22 20:45 Source rapid HIV return as negative per lab. Medical Decision Making - Medical Decision Making Patient will be discharged following exposure labs being drawn Disposition Clinical Impression: Finger injury Disposition: HOME SELF-CARE Condition: Stable Instructions (If sedation given, give patient instructions): Needle Stick Injuries (ED) Additional Instructions: Please follow-up with employee health services tomorrow. Return for illness or fever, finger problems, worsening or changing symptoms or any other concerns. Please also follow-up with primary care physician. Is patient prescribed a controlled substance at d/c from ED?: No Referrals: Peyton Stearns MD [Primary Care Provider] - 1-2 days Time of Disposition: 20:52
== END 2022-02-14 21:12 | disposition home or self-care (01) ==
LOC: EC 15:44
DX: S61.234A Puncture wound without foreign body of right ring finger without damage to nail, initial encounter (principal); Z77.21 Contact with and (suspected) exposure to potentially hazardous body fluids; J45.909 Unspecified asthma, uncomplicated; K21.9 Gastro-esophageal reflux disease without esophagitis; Z88.0 Allergy status to penicillin; Z88.1 Allergy status to other antibiotic agents; Z90.710 Acquired absence of both cervix and uterus; W46.1XXA Contact with contaminated hypodermic needle, initial encounter
CPT/HCPCS: 99283